=== PATIENT | female | born 1990 | race Caucasian/White ===

== ENCOUNTER 2021-10-04 12:23 | Outpatient (CLI) | payer OTHER, SELFPAY ==
--- NOTE | 2021-10-04 13:00 | CRLHL7_ITS ---
For Patients: As a result of the Century Cures Act, medical imaging exams and procedure reports are released immediately into your electronic medical record. You may view this report before your referring provider. If you have questions, please contact your health care provider. INDICATION: Evaluate anatomy. COMPARISON: 08/18/2021 TECHNIQUE: Real time blunt scale imaging of the fetus was performed as well as color Doppler analysis of the umbilical vessels. FINDINGS: Sonographic imaging demonstrates a single living intrauterine gestation. Fetus demonstrates a regular cardiac rate of 168 beats per minute. Fetus has a vertex position. The placenta lies posterior without evidence of placenta previa. Edge of the placenta 9.1 cm from the internal cervical os. Amniotic fluid volume appears normal. Single deepest vertical pocket: 4.3 cm. The cervix is closed and measures 3.9 cm in length. The composite ultrasound gestational age is calculated at 20 weeks 3 days with an estimated sonographic due date of 02/18/2022. The estimated weight is 348 grams which lies at the 33rd %. The following biometric measurements were obtained: Biparietal diameter: 4.9 cm/20 weeks 6 days 62nd% Head circumference: 17.9 cm/20 weeks 2 days 30th% Abdominal circumference: 15.6 cm/20 weeks 5 days 49th% Femur length: 3.2 cm/19 weeks 6 days 19th% The HC/AC ratio measures: 1.15 range (1.07-1.25) On anatomic survey, there is a normal appearance of the cerebral ventricles, cavum septi pellucidi, cisterna magna and cerebellum. The nose, lips, and facial profile appear normal. The cervical, thoracic and lumbar spine are well visualized and appear normal. There is a normal four-chamber heart view and the left and right ventricular outflow tracts appear normal. The diaphragm and stomach appear normal. The kidneys and bladder also appear normal. There is a normal three-vessel cord and cord insertion site. The four extremities appear normal. IMPRESSION: Normal OB ultrasound exam with concordance of clinical and sonographic dating. No intrinsic abnormalities noted on anatomic survey. Dictated by Brendan Zarate MD @ 10/04/2021 2:41:46 PM (Electronically Signed)
== END 2021-10-04 12:24 | disposition home or self-care (01) ==
LOC: US 12:26
PROVIDERS: Visit Provider Physician Assistant
DX: Z34.92 Encounter for supervision of normal pregnancy, unspecified, second trimester (principal); Z3A.20 20 weeks gestation of pregnancy
CPT/HCPCS: 76805

== ENCOUNTER 2021-11-24 09:56 | Outpatient (CLI) | payer OTHER, SELFPAY ==
[2021-11-25 17:33] LABS: Rapid Plasma Reagin (RPR) Non Reactive (Non Reactive)
== END 2021-11-24 09:57 | disposition home or self-care (01) ==
PROVIDERS: Visit Provider Physician Assistant
DX: Z34.90 Encounter for supervision of normal pregnancy, unspecified, unspecified trimester (principal)
CPT/HCPCS: 86592; 86850

== ENCOUNTER 2022-01-17 10:25 | Outpatient (CLI) | payer OTHER, SELFPAY ==
[2022-01-18 15:31] LABS: Strep B DNA Probe NEGATIVE (Negative)
== END 2022-01-17 10:26 | disposition home or self-care (01) ==
LOC: NFLDREF 10:25
PROVIDERS: Visit Provider Obstetrics & Gynecology
DX: Z34.93 Encounter for supervision of normal pregnancy, unspecified, third trimester (principal); Z3A.35 35 weeks gestation of pregnancy
CPT/HCPCS: 87081; 87653

== ENCOUNTER 2022-01-24 12:49 | Outpatient (CLI) | payer OTHER, SELFPAY ==
--- NOTE | 2022-01-24 15:00 | CRLHL7_ITS ---
For Patients: As a result of the Century Cures Act, medical imaging exams and procedure reports are released immediately into your electronic medical record. You may view this report before your referring provider. If you have questions, please contact your health care provider. INDICATION: COVID in . Assess well-being. TECHNIQUE: Limited transabdominal obstetrical ultrasound for biophysical profile purposes. COMPARISON: October 04, 2021. FINDINGS: Single living intrauterine in vertex presentation. Posterior placenta. heart rate 165 beats per minute. Normal amniotic fluid volume. Single deepest pocket measurement 7.5 cm. Biophysical profile score 8/8 with 2 points given each for breathing, movement, tone, and amniotic fluid. IMPRESSION: Biophysical profile score 8/8. Dictated by Madhu Bhakta MD @ 01/25/2022 8:12:12 PM (Electronically Signed)
== END 2022-01-24 12:50 | disposition home or self-care (01) ==
LOC: US 12:50
PROVIDERS: Visit Provider Obstetrics & Gynecology
DX: Z34.93 Encounter for supervision of normal pregnancy, unspecified, third trimester (principal); Z3A.38 38 weeks gestation of pregnancy
CPT/HCPCS: 76819

== ENCOUNTER 2022-01-31 08:13 | Outpatient (CLI) | payer OTHER, SELFPAY ==
--- NOTE | 2022-01-31 08:15 | CRLHL7_ITS ---
For Patients: As a result of the Century Cures Act, medical imaging exams and procedure reports are released immediately into your electronic medical record. You may view this report before your referring provider. If you have questions, please contact your health care provider. INDICATION: COVID IN COMPARISON: 01/24/2022 TECHNIQUE: Real time blunt scale imaging of the fetus was performed. Without non-stress testing. FINDINGS: Sonographic imaging demonstrates a single living intrauterine gestation. Fetus demonstrates a regular cardiac rate of 135 beats per minute. Fetus has a vertex position. The amniotic fluid volume appears normal and there is a single deepest pocket measurement of 5.6 cm. The fetus was active and demonstrated normal breathing movements. There was normal flexion and extension of the trunk and extremities. IMPRESSION: Normal biophysical profile score of 8 out of 8. Dictated by Brendan Zarate MD @ 01/31/2022 10:27:37 AM (Electronically Signed)
== END 2022-01-31 08:14 | disposition home or self-care (01) ==
PROVIDERS: Visit Provider Obstetrics & Gynecology
DX: O98.519 Other viral diseases complicating pregnancy, unspecified trimester (principal); U07.1 COVID-19
CPT/HCPCS: 76819

== ENCOUNTER 2022-02-06 08:02 | Outpatient (CLI) | payer OTHER, SELFPAY ==
--- NOTE | 2022-02-06 08:15 | CRLHL7_ITS ---
For Patients: As a result of the Century Cures Act, medical imaging exams and procedure reports are released immediately into your electronic medical record. You may view this report before your referring provider. If you have questions, please contact your health care provider. INDICATION: COVID during TECHNIQUE: Real time blunt scale imaging of the fetus was performed. COMPARISON: 01/31/2022 FINDINGS: Sonographic imaging demonstrates a single living intrauterine gestation. Fetus demonstrates a regular cardiac rate of 141 beats per minute. Fetus has a vertex position. The placenta lies posteriorly. Amniotic fluid volume appears normal and there is a single deepest pocket of 6.6 cm. The estimated weight is 2861gm which lies at the 14th %. On the prior OB ultrasound dated 10/04/2021 the estimated weight was at the 33rd percentile. BPD, HC and FL less than 3rd percentile. AC 40th percentile. The fetus was active and demonstrated normal breathing movements. There was normal flexion and extension of the trunk and extremities. IMPRESSION: Normal biophysical profile score 8/8. Sonographic gestational age 35 weeks 2 days and sonographic due date 03/11/2022. Sonographic age is 22 days behind the clinical age. Estimated weight 14th percentile. BPD, HC and FL less than 3rd percentile. Abdominal circumference 40th percentile. Dictated by Brendan Zarate MD @ 02/06/2022 11:09:51 AM (Electronically Signed)
== END 2022-02-06 08:03 | disposition home or self-care (01) ==
LOC: US 08:02
PROVIDERS: Visit Provider Obstetrics & Gynecology
DX: O98.513 Other viral diseases complicating pregnancy, third trimester (principal); U07.1 COVID-19; Z3A.35 35 weeks gestation of pregnancy
CPT/HCPCS: 76816; 76819

== ENCOUNTER 2022-02-13 08:19 | Outpatient (CLI) | payer OTHER, SELFPAY ==
--- NOTE | 2022-02-13 08:15 | CRLHL7_ITS ---
For Patients: As a result of the Century Cures Act, medical imaging exams and procedure reports are released immediately into your electronic medical record. You may view this report before your referring provider. If you have questions, please contact your health care provider. INDICATION: COVID in COMPARISON: 02/06/2022 TECHNIQUE: Real time blunt scale imaging of the fetus was performed. Without non-stress testing. FINDINGS: Sonographic imaging demonstrates a single living intrauterine gestation. Fetus demonstrates a regular cardiac rate of 139 beats per minute. Fetus has a vertex position. The amniotic fluid volume appears normal and there is a single deepest pocket measurement of 4.9 cm. The fetus was active and demonstrated normal breathing movements. There was normal flexion and extension of the trunk and extremities. IMPRESSION: Normal biophysical profile score of 8 out of 8. Dictated by Brendan Zarate MD @ 02/13/2022 11:29:02 AM (Electronically Signed)
== END 2022-02-13 08:20 | disposition home or self-care (01) ==
LOC: US 08:20
PROVIDERS: Visit Provider Obstetrics & Gynecology
DX: O98.513 Other viral diseases complicating pregnancy, third trimester (principal); U07.1 COVID-19; Z3A.39 39 weeks gestation of pregnancy
CPT/HCPCS: 76819

== ENCOUNTER 2022-02-13 16:02 | Inpatient (IN) | payer OTHER, SELFPAY ==
[2022-02-13 16:34] VITALS: PULSE 102; O2SAT 97
[2022-02-13 16:35] VITALS: BP 102/63; PULSE 96
--- NOTE | 2022-02-13 16:37 | W.PM.LDBA ---
Subjective History of Present Illness Date Seen: 02/13/22 Narrative: Patient is being admitted to Labor and Delivery for elective IOL in the setting of COVID infection in . She is a 31 year old at 39 3/7 weeks gestation. Her full history and physical was dictated by on 01/24/22. Please see this for details. Comments: Specific Issues/Plans Blood Type:?O negative 1. History of abnormal Paps: 10/2013: LSIL at age 23 12/11/2014:? Ascus 01/06/2016:? Ascus Colposcopy 2017 with biopsy:? Negative 02/07/2021:? NIL * 2. seasonal allergies (postnasal drainage, sneezing, cough) Claritin and Flonase, Singulair added 09/13/2021:? Reported marked improvement and resolution of cough 3.GERD with return of cough with her heartburn symptoms 11/24/2021:? Initiated omeprazole 20 mg 4. COVID positive, tested positive on 01/24/22, patient had been experiencing symptoms since 01/20/22 -Weekly NST/BPP until delivery -Consider delivery by 39 weeks Rh-negative status RhoGAM:? 11/24/2021 COVID:? Vaccinated +booster Flu vaccine given at her job 12/23/21 OB - H&P: Exam Physical Exam: Vital signs: Pulse BP Pulse Ox 96 102/63 97 02/13/22 16:35 02/13/22 16:35 02/13/22 16:34 Narrative: VITAL SIGNS: As noted above. GENERAL APPEARANCE: Alert, cooperative female in no acute distress. MOOD & AFFECT: Normal. ABDOMEN: Gravid, non tender Cervix: 1.5cm/80%/VX/0 EXTREMITIES: Nonedematous. Well perfused. Nontender. NST: 125bpm/positive accelerations/negative decelerations/moderate variability/ sporadic uterine contractions OB - Problem Based A/P Additional Plan (1) : Status: Acute Plan GBS negative, no need for antibiotic prophylaxis Patient plans to get epidural for pain management May utilize Morphine/Vistaril tonight Cook catheter in place, start IV oxytocin later tonight per protocol Delivery/Labor/Induction Plan Plan: induction Induction method: Intracervical balloon catheter (Placed and patient tolerated procedure well, NST category 1. Will start IV Oxytocin later tonight as per protocol. )
[2022-02-13 16:40] VITALS: BMI 31.2
[2022-02-13 17:24] LABS: SARS Antigen* negative (Negative)
[2022-02-13 18:16] VITALS: BP 108/63; PULSE 72; RESP 16; TEMP 36.9
[2022-02-13 19:53] VITALS: BP 124/83; PULSE 80; PULSE 85; RESP 16; TEMP 36.6; O2SAT 99
[2022-02-13 20:00] VITALS: BP 139/61; PULSE 122; TEMP 36.7
[2022-02-13] MEDS: hydrOXYzine pamoate 25 MG CAPSULE 100 MG PO (23:35)
[2022-02-13 23:54] VITALS: BP 107/58; PULSE 75; TEMP 36.5
[2022-02-14] VITALS (172 sets, daily range): BP systolic 75–219; BP diastolic 41–148; PULSE 53–153; RESP 16–20; TEMP 36.5–37.4; O2SAT 95–100
[2022-02-14] MEDS: ePHEDrine sulfate 5 MG/ML inj 10 MG IVP ×2 (03:22→03:26)
[2022-02-14] MEDS: ROPIVACAINE 0.2% 100 ml 100 ML 10 MG EPIDURAL ×3 (03:28→18:46)
[2022-02-14] MEDS: LIDOCAINE 2% (PF) 5 ML VIAL EPIDURAL (03:29)
--- NOTE | 2022-02-14 03:32 | PM.ANBPRC ---
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 Marital status: [] Current tobacco use: no. Current alcohol use: no. Recreational drug use: no. Smoking Status: Never smoker Meds Home Medications and Allergies Home Medications Medication Instructions Recorded Confirmed Type prenat.vits,portia,wcj-jqqw-sambr 1 tab PO QDAY 09/13/21 02/13/22 History Allergies Allergy/AdvReac Type Severity Reaction Status Date / Time No Known Drug Allergies Allergy Verified 02/13/22 09:08 Results Labs Labs: Laboratory Results - last 24 hr 02/13/22 16:14 SARS-CoV-2 Ag (Rapid) negative Vital Signs Vital Signs: Last Vital Signs Temp 97.7 F 02/13/22 23:54 Pulse 93 02/14/22 03:32 Resp 16 02/13/22 19:53 BP 93/53 L 02/14/22 03:32 Pulse Ox 99 02/14/22 03:32 Weight: 70.125 kg Height: 149.86 cm Anesthesia Procedures Epidural Insertion Patient Location: OB Start Time: 03:00 Stop Time: 03:40 Start Date: 02/14/22 Stop Date: 02/14/22 Reason for Block: primary anesthetic Patient Position: sitting Performed By: Macario Paul Preanesthetic Checklist: IV checked, risks and benefits discussed, surgical consent, monitors and equipment checked, pre-op evaluation, timeout performed and anesthesia consent Prep: chlorhexidine gluconate Monitoring: blood pressure monitoring, residential monitor, continuous pulse oximetry and heart rate Approach: midline Vertebral Space: lumbar (1-5) Needle Type: Tuohy needle Injection Technique: continuous catheter (catheter) Needle gauge: 17 Needle Length (cm): 10 cm Needle Insertion Depth (cm): 5 Catheter Gauge: 19 Catheter Type: multi-orifice Catheter at skin depth (cm): 10 Test Dose Result: negative and lidocaine 1.5% with epinephrine 1 to 200,000
[2022-02-14] MEDS: PHENYLEPHRINE 100 MCG/ML SYRINGE IVP ×4 (03:40→06:04)
[2022-02-14] MEDS: OXYTOCIN 30 unit/500 ML in NS 30 UNIT/500 ML BAG IVPB (05:30)
[2022-02-14] MEDS: SODIUM CHLORIDE 0.9 % (FLUSH) 10 ML SYRINGE IVF (05:44)
--- NOTE | 2022-02-14 06:23 | PM.OBPNL ---
Subjective Date Seen: 02/14/22 Narrative: Patient was evaluated at around 2-3am due to NST showing what looked like frequent variable decelerations. We tried position changes, decided to check cervix and cook catheter was found at +2 station, this was deflated and removed. Cervix was found 4cm, patient requested epidural before AROM. Due to multiple events overnight with the care of other patients IV oxytocin was not started until after 4am this morning. Currently NST with baseline of 120bpm/moderate variability/positive accelerations/no decelerations/regular contractions. Plan to continue titration of IV Oxytocin and to AROM later this am. Care to be assumed by Dr. Guerrero this morning. Objective Vital Signs: Last Vital Signs Temp 97.7 F 02/13/22 23:54 Pulse 94 02/14/22 06:20 Resp 16 02/13/22 19:53 BP 100/59 L 02/14/22 06:20 Pulse Ox 98 02/14/22 03:52
[2022-02-14] MEDS: LACTATED RINGERS 1000 ML 1,000 ML 125 ML IV ×2 (07:28→11:40)
--- NOTE | 2022-02-14 09:06 | PM.OBPNL ---
Subjective Time Seen by Provider: 09:00 Date Seen: 02/14/22 Narrative: Debra is comfortable with epidural. She feels some contractions. Objective Exam: Gen - NAD Abd - soft, NT, gravid, EFW 7.5 lbs by Ki SVE: 5 / 100 / 0 station. AROM for light meconium-stained fluid Vital Signs: Last Vital Signs Temp 97.7 F 02/14/22 07:15 Pulse 94 02/14/22 08:57 Resp 16 02/13/22 19:53 BP 137/65 02/14/22 08:57 Pulse Ox 100 02/14/22 09:00 Comments: tracing: Baseline 130 / accels present / no decels / moderate variability. Contractions Monitor mode: External Contraction Frequency: not registering well Pitocin Rate (mU/min): 9 Assessment Assessment: early labor Amniotic Membrane Status: AROM Status: Category l Tracing Comments: Light meconium stained fluid. GBS negative. Labor Progress: About to enter active labor, progressing well. Plan Plan: Continue pitocin augmentation. Reassess 2 hrs. Peds to be present at delivery.
--- NOTE | 2022-02-14 17:03 | PM.OBPNL ---
Subjective Time Seen by Provider: 16:30 Date Seen: 02/14/22 Narrative: Debra is starting to have continuous back pain and pelvic pressure. Her last nurse reported her to be 7 cm, but her current nurse, Jyoti, found her to be 6 cm. She has asked for IUPC. Objective Exam: Gen - NAD Abd - soft, NT, gravid, EFW 7.5 lbs by Bryan's on my previous exam SVE: 8 / 100 / 0 - +1 station. IUPC placed with aseptic technique Vital Signs: Last Vital Signs Temp 98.4 F 02/14/22 14:30 Pulse 92 02/14/22 16:57 Resp 16 02/13/22 19:53 BP 116/58 L 02/14/22 16:57 Pulse Ox 100 02/14/22 14:02 Comments: tracing: Baseline 130 / accels present / no decels / moderate variability. Contractions Monitor mode: External Contraction Frequency: 1-3 min Contraction pattern: Regular Pitocin Rate (mU/min): 16 Assessment Assessment: active labor Amniotic Membrane Status: AROM Status: Category l Tracing Comments: Light meconium stained fluid. GBS negative. Labor Progress: Protracted active phase, but progressing well. Plan Plan: Continue pitocin augmentation. Assess MVUs. Anticipate will be completely dilated shortly. Peds to be present at delivery.
--- NOTE | 2022-02-14 20:53 | PM.OBPNL ---
Subjective Time Seen by Provider: 18:20 Date Seen: 02/14/22 Narrative: Debra is a 31 yo at 39 4/7 that was electively induced for hx of COVID. She recently began feeling pressure. I assumed care to cover while Dr. Guerrero is in the operating room. Patient has just initiated pushing and is pushing well. She is comfortable with an epidural. She is currently supported in labor by her Partner. Objective Exam: Constitutional: Alert and oriented x3, mild distress, coping well? Vital signs stable, see nursing documentation?? Abdomen: gravid, contractions palpate strong with contractions and soft between? SVE:?10 / 100 / +2 station per RN. Vital Signs: Last Vital Signs Temp 99.3 F 02/14/22 17:40 Pulse 133 H 02/14/22 20:47 Resp 16 02/14/22 17:40 BP 140/67 H 02/14/22 20:47 Pulse Ox 98 02/14/22 20:51 Pelvic Exam Dilation (cm): 10 Effacement (%): 100 Station: +2 Contractions Monitor mode: Internal Contraction Frequency: 1-5 Contraction pattern: Regular Contraction intensity: Strong/Firm Pitocin Rate (mU/min): 16 Assessment Assessment: induction ongoing and other (2nd Stage of labor) Station: +2 Amniotic Membrane Status: AROM Status: Category l Heart Rate Baseline: 140 Longterm Variability: Moderate (6-25) Monitor Accelerations: Present Monitor Decelerations: None Labor Progress: Protracted active phase of labor Maternal Status: Observed first maternal pushing effort. Pushing well. Plan Plan: 1. Routine intrapartum cares as ordered. 2. Monitoring per policy, continuous? 3. Patient encouraged to reposition while pushing. 4. Initiated pushing with RN, pushing well. 5. Anticipate ?
[2022-02-14] MEDS: ACETAMINOPHEN 500 MG TABLET 1000 MG PO (21:05)
--- NOTE | 2022-02-14 22:59 | PM.OBPRCVD ---
Procedure Procedure Done: [facility] Procedure Details: The patient is a 31 year-old G 2 P 0-0-1-0 woman admitted on 02/13/2022 at 39 Weeks, 2 Days gestation for elective induction of labor.? Cervical exam on admission was 1 cm/80 % effaced/0 station with membranes intact in vertex presentation.? She was having sporadic contractions. heart rate demonstrated baseline 125 bpm with moderate variability, positive accelerations, no decelerations; a category 1 tracing.? She had Cook catheter placed for cervical ripening. She had AROM at a 8:51 a.m. on February 14 with light meconium-stained fluid. ? Labor Analgesia:? Epidural ? Pitocin:? Yes ? Labor onset:? 11:00 a.m. ? Complete:? 6:15 p.m. ? Pushing:? 6:16 p.m. ? heart tones during second stage were reassuring, aside from deep variable decelerations after contractions just prior to delivery of the infant. ? At 7:26 p.m. a viable male delivered in vertex OA presentation over intact perineum via spontaneous vaginal delivery.? was placed on maternal abdomen, was not vigorous. Cord was thus immediately clamped and cut and was passed off to attending pediatric provider.? Nose and mouth were bulb suctioned.? Infant weight pending.? 7 at 1 minute and 8 at 5 minutes.? Weight was 3010 g. Shoulder dystocia: No.? Nuchal cord: No, loose cord around shoulders, delivered through this. ? Placenta delivered spontaneously and complete at 7:37 p.m. with a 3 vessel cord. ? Mother and infant were stable after delivery. ? Lacerations:? Right periurethral and second-degree vaginal that did not disrupt the perineal skin, repaired with 3-0 Vicryl after infiltration with 10 mL of 1% lidocaine. ? Blood loss: 350 mL. Blood loss measurement type: EBL ? Sponge and needles counts are correct. Estimated blood loss (mL): 350 [place] Infant Infant Gender: Male total score - 1 minute: 7 total score - 5 minute: 8
[2022-02-15] VITALS (7 sets, daily range): BP systolic 91–120; BP diastolic 52–82; PULSE 77–103; RESP 16–18; TEMP 36.3–36.7; O2SAT 96–97
[2022-02-15] MEDS: IBUPROFEN 600 MG TABLET PO ×4 (00:02→20:23)
[2022-02-15] MEDS: ACETAMINOPHEN 500 MG TABLET 1000 MG PO ×4 (03:15→23:28)
[2022-02-15 05:45] LABS: Hemoglobin* 8.9 gm/dL (12.0-16.0)
--- NOTE | 2022-02-15 08:14 | P.OBPN_ITS ---
OB - PN:Subj Subjective Time Seen by Provider: 08:14 Date Seen: 02/15/22 Interval history: Debra is a 31 y.o. who was admitted to L & D for IOL. She had an uncomplicated NVD. Patient comments OB post-: no complaints, pain well controlled, perineal pain, tolerating diet and flatus present [place] infant status: bottle, and doing well [place] feeding status: breast and bottle feeding Narrative: The patient feels well. The pain is well controlled with current medications. She has no new complaints. She is breast feeding and reports things are going well. Is also supplementing as needed.? the patient has done well.? Vitals have been stable.? She has remained afebrile.? Has a good appetite, is tolerating a general diet. She is voiding without difficulty.? She is passing gas and has not had a bowel movement.? She is ambulating and denies any dizziness.? Has Small amount of rubra lochia. OB - PN: Obj Exam Physical Exam: Vital signs: Temp Pulse Resp BP Pulse Ox O2 Del Method 98.0 F 92 16 107/52 L 97 02/15/22 04:00 02/15/22 04:00 02/15/22 04:00 02/15/22 04:00 02/15/22 04:00 02/15/22 04:00 Narrative: GENERAL APPEARANCE: normal affect, alert, no distress MOOD: appropriate HEENT: normocephalic, neck supple, full ROM. Dark lines under eyes bilaterally from broken blood vessels w/ pushing CHEST: Symmetrical chest wall movement. Normal respiratory effort. Clear to auscultation HEART: regular rate and rhythm ABDOMEN: soft, non-tender. Uterine fundus is firm, 1 fingerbreath below Umbilicus, Midline and is appropriate for the stage of recovery. Bowel sounds present. PERINEUM: Large amount of edema of the perineum and labia bilaterally, and bruising noted on the pernieum. Soft to the touch, no hematoma. There is a 2nd degree laceration that is healing well. EXTREMITIES: normal and no edema OB - PN: Obj Data Labs Labs: Laboratory Results - last 24 hr 02/15/22 05:35 Hgb 8.9 L OB - PN: A/P Vaginal Delivery Assessment and Plan (1) : Status: Resolved (2) Normal spontaneous vaginal delivery: Status: Acute (3) Second degree laceration of perineum, delivered, current hospitalization: Status: Acute Plan day: 1 Plan: routine care Comments: G 2 P 1 status post uncomplicated NVD 1. Continue route PP cares 2. . May see if desired 3. Acute anemia. Iron supplement ordered 4. Anticipate discharge home tomorrow 5. Perineal swelling. -Comfort measures reviewed including ice, soaking in the tub, etc.
[2022-02-15] MEDS: DOCUSATE SODIUM 100 MG CAPSULE PO (09:14)
[2022-02-15] MEDS: FERROUS SULFATE 325 MG TABLET PO (09:14)
[2022-02-16] MEDS: IBUPROFEN 600 MG TABLET PO ×2 (02:35→08:53)
[2022-02-16 03:00] VITALS: BP 105/65; PULSE 86; RESP 18; TEMP 36.6; O2SAT 97
[2022-02-16] MEDS: ACETAMINOPHEN 500 MG TABLET 1000 MG PO (05:43)
[2022-02-16 08:50] VITALS: BP 116/71; PULSE 100; RESP 16; TEMP 36.3; O2SAT 97
--- NOTE | 2022-02-16 08:50 | PM.OBDSVD1 ---
DS: Providers Provider Date Seen: 02/16/22 Date of admission: 02/13/22 16:02 Primary care physician: Not a Local Provider Admitting Clinician: Maryellen Burgos MD Attending Physician on discharge: Maryellen Burgos MD Date of Discharge: 02/16/22 DS: Diagnosis Discharge Diagnosis (1) Normal spontaneous vaginal delivery: Status: Acute (2) Lactating mother: Status: Acute Exam Const: Vital Signs, click to edit/add: Vital Signs - 24 hr 02/15/22 11:54 02/15/22 16:16 02/15/22 20:00 Temperature 97.9 F 97.8 F 97.5 F L Pulse Rate [Pulse Oximeter] 77 98 98 Respiratory Rate 16 16 16 Blood Pressure [Ri ght Arm] 115/73 105/73 109/74 Pulse Oximetry 96 96 Oxygen Delivery Me thod Room Air Room Air Room Air Nasal Can nula High Flow [place] Cannula 02/15/22 23:00 02/16/22 03:00 Temperature 97.8 F 97.9 F Pulse Rate [Pulse Oximeter] 79 86 Respiratory Rate 18 18 Blood Pressure [Ri ght Arm] 91/57 L 105/65 Pulse Oximetry 97 Oxygen Delivery Me thod Room Air Nasal [place] n[place] Room Air Documenting provider has reviewed patient's vital signs: yes Common normals: no apparent distress HENMT: Common normals: normocephalic Head and scalp: normocephalic Face and sinus: normal facial exam Eye: General eye: normal appearance of both eyes Neck & C-Spine: Common normals: full ROM and no JVD Resp: Common normals: normal respiratory effort, no retractions, no use of accessory muscles and clear to auscultation bilaterally Auscultation: clear to auscultation bilaterally Cardio: Common normals: no JVD, regular rate, regular rhythm, S1 normal heart sound, S2 normal heart sound, no gallops, no clicks, no murmurs and no rub Rate: regular rate Rhythm: regular rhythm Heart sounds: S1 normal and S2 normal GI: Common normals: soft to palpation and non-tender Palpation: soft : Common normals: external appearance normal Uterus: U/1 Extremity: Common normals: full ROM Psych: Common normals: mental status grossly normal OB - DS: Summary Hospital Course Hospital Course: The patient is a 31 year old G [] P [] at [] weeks gestation that was admitted to the Center on 02/13/22 for []. She had an [uncomplicated/complicated] [vaginal/] delivery. She delivered a viable [male/female] . She is [breast/bottle] feeding. the patient has done well. Peripartum Data Infant delivery method: Vaginal Laceration description: Perineal - 2nd Degree (and periurethral) Episiotomy description: None Procedures: Patient is a 31 year old, G2 now P 1? admitted on 02/14 at 39 Weeks, 0 Days gestation for elective IOL.? She had an uncomplicated vaginal delivery.? She delivered a viable male infant.? She is breast feeding and reports things are well.? the patient has done well.? Her pain is well controlled with current medications.? She has no new complaints.? Vitals have been stable. She has remained afebrile. She is voiding without difficulty. She is passing gas and has not had a bowel movement. She is ambulating and denies any dizziness. She is unsure what she is planning for control. She felt the IUD previously had affected her mood and felt better after she no longer had an IUD. She will probably use condoms to start. complications: none [place] Gender: Male Infant Discharge Plan: Home Status at Discharge Functional status at discharge: independent ambulation Overall status at discharge: patient is progressing back to baseline Time Spent with Patient Time attestation: Total time spent providing and/or coordinating discharge services: Discharge Plan Discharge Disposition: Home, Self-Care Date of Admission: 02/13/22 16:02 Attending Provider on Discharge: Cheryl Riggins Primary Care Provider: Provider,Not a Local Condition: Stable Anticipated Discharge Date/Time: 02/16/22 10:00 Discharge Medications: New docusate sodium 100 mg Capsule 100 mg PO DAILY Qty: 90 0RF Rx Instructions: Take 1-2 tablets daily as needed for constipation. ferrous sulfate 325 mg (65 mg iron) Tablet 325 mg PO DAILYWM Qty: 90 0RF ibuprofen 600 mg Tablet 600 mg PO Q6H PRNQty: 60 0RF Continued prenat.vits,portia,[id number] Tablet 1 tab PO QDAY Discontinued omeprazole 20 mg capsule,delayed release(/EC) 20 mg PO QDAY Qty: 90 0RF Discharge Orders: Discharge Order (Routine); Ordered 02/16/22 Ordered By: Cheryl Riggins Patient Education: OB Vaginal/Breast Feeding Additional Instructions: Discharge instructions were reviewed with the patient including signs and symptoms of infection and home going medications.? Lifting Restrictions: 10 pounds for 6? weeks? ?? Do not drive while taking pain meds.? Off Work or School for 6 weeks.? ?? Symptoms to report to doctor:? -Bleeding that saturates more than one pad per hour? -Passing clots larger than the size of a golf ball? -Pain not relieved by prescribed medication? -Fever above 100.4 degrees Fahrenheit? -A foul vaginal odor? -Difficulty in emotions, mood and functions? -Thoughts of hurting yourself and/or ? -Painful, reddened area in your breast? -Any drainage, redness or tenderness in your IV/epidural site? -Severe headache that doesn't improve after taking medications? -Changes in vision, including temporary loss of vision, blurred vision, and/or light sensitivity? -Upper abdominal pain (usually under ribs on the right side)? -Decrease in urination or painful, frequent urinating? -Chest pain? -Shortness of breath? -Tenderness or pain with redness and/swelling in the calf(s) of your leg? ?? Follow Up in clinic in 2 and 6 weeks.? ?? consultation services are available to all mothers and babies for the first year after delivery.? To make an appointment, please call [phone].? Activity Level: No Restrictions Discharge Diet: Regular Follow Up Appointments: Provider,Not a Local [Primary Care Provider] - Forms: [employer] Info Instructions
[2022-02-16] MEDS: DOCUSATE SODIUM 100 MG CAPSULE PO (08:54)
[2022-02-16 09:44] VITALS: BP 116/71; RESP 16; TEMP 37.1; O2SAT 99
== END 2022-02-16 12:14 | disposition home or self-care (01) | DRG 805 ==
PROVIDERS: Obstetrics & Gynecology; Admitting Provider Obstetrics & Gynecology; Visit Provider Obstetrics & Gynecology
DX: O98.52 Other viral diseases complicating childbirth (principal); U07.1 COVID-19; Z37.0 Single live birth; D62 Acute posthemorrhagic anemia; O90.81 Anemia of the puerperium; O77.0 Labor and delivery complicated by meconium in amniotic fluid; O70.1 Second degree perineal laceration during delivery; O71.82 Other specified trauma to perineum and vulva; K21.9 Gastro-esophageal reflux disease without esophagitis; Z3A.39 39 weeks gestation of pregnancy
CPT/HCPCS: 01967; 36415; 85018; 85461; 87426; 87635; A9270; J2370; J2791; J2795; J7120

== ENCOUNTER 2022-03-05 03:30 | Emergency (ER) | payer OTHER, SELFPAY ==
[2022-03-05] VITALS (23 sets, daily range): BP systolic 94–109; BP diastolic 51–77; PULSE 51–78; RESP 14–18; TEMP 36.9–37.4; O2SAT 96–100; BMI 26.3
--- NOTE | 2022-03-05 04:25 | ED.GENADULT ---
HPI - General Adult General Chief complaint: Post OB/Post- Complication <Brendan Curry MD - Last Filed: 03/05/22 06:57> Stated complaint: Post Bleeding <Brendan Curry MD - Last Filed: 03/05/22 06:57> Time Seen by Provider: 03/05/22 03:51 <Brendan Curry MD - Last Filed: 03/05/22 06:57> History of Present Illness HPI narrative: 31-year-old woman brought by EMS to the emergency department accompanied by her with concern of syncopal event and vaginal bleeding. following normal spontaneous vaginal delivery almost 3 weeks ago. 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 Further bleeding noted in the toilet. had returned to attend to their infant when he heard her fall. Apparently struck right side of her head on the floor the bathroom. She is not having any neck or back pain. She is not having any nausea. No shortness of breath. Had actually been feeling quite good today with more energy up and doing a lot of cleaning. Is not having any abdominal pain. She is unsure if she is still bleeding. No fever. Reviewing records shows initial January hemoglobin 11.4 last measured at 8.9. Is antibody negative. complicated by COVID and delivery with second-degree vaginal laceration. EMS noting systolics initially of 89. <Brendan Curry MD - Last Filed: 03/05/22 06:57> Related Data Home medications: Home Medications Medication Instructions Recorded Confirmed fluoxetine 10 mg capsule (Prozac) 10 mg PO QDAY 03/02/22 03/02/22 ferrous sulfate 325 mg (65 mg mg 03/05/22 iron) tablet (FeroSul) Previous Rx's Medication Instructions Recorded ibuprofen 600 mg tablet 600 mg PO Q6H PRN #60 tabs 02/16/22 fluoxetine 20 mg capsule 20 mg PO QDAY #30 caps 03/02/22 <Brendan Curry MD - Last Filed: 03/05/22 06:57> Allergies/adverse reactions: Allergies Allergy/AdvReac Type Severity Reaction Status Date / Time No Known Drug Allergies Allergy Verified 03/05/22 03:41 <Brendan Curry MD - Last Filed: 03/05/22 06:57> Review of Systems Status of ROS: Reports: 6 or more systems reviewed and unremarkable except as noted in History and below <Brendan Curry MD - Last Filed: 03/05/22 06:57> [facility] Medical History: Medical History COVID-19 affecting in third trimester GERD (gastroesophageal reflux disease) History of abnormal cervical Papanicolaou smear <Brendan Curry MD - Last Filed: 03/05/22 06:57> Surgical History: Surgical History Hx of cholecystectomy <Brendan Curry MD - Last Filed: 03/05/22 06:57> Social History: Social History Narrative: 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 Marital status: [] Current tobacco use: no. Current alcohol use: no. Recreational drug use: no. Smoking Status: Never smoker Do you use any of these nicotine containing products: None Second hand tobacco smoke exposure: No How often do you have a drink containing alcohol: never AUDIT-C Alcohol total score: 0 Non-prescribed substance use: denies use <Brendan Curry MD - Last Filed: 03/05/22 06:57> Exam Narrative: Exam Narrative: Is pleasant. Fully alert. Good energy. Skin is warm and dry. There is mild line of erythema at the right forehead and hairline consistent with fall. Not tender here no crepitus or step-offs appreciated. Cranial nerves 2-12 intact. Both eyes lateral to the cornea have small subconjunctival hemorrhages. This apparently was and not new today. Breathing easily. Lungs are clear. Cardiovascular with a regular rate and rhythm no murmur rub or gallop identified. Neck is supple and nontender. Back nontender as well. Abdomen soft and nontender. Uterus feels firm. Extremities without edema. Clothing obscuring evidence of bleeding at this initial evaluation. <Brendan Curry MD - Last Filed: 03/05/22 06:57> Const: Vital Signs, click to edit/add: Vital Signs - 24 hr 03/05/22 03:32 03/05/22 03:48 03/05/22 04:21 Temperature 99.4 F Pulse Rate 68 Pulse Rate [Left P ulse Oximeter] 61 Pulse Rate [orthos tatic lying Left P ulse Oximeter] 59 L Pulse Rate [orthos tatic sitting Left Pulse Oximeter] Pulse Rate [orthos tatic standing Lef t Pulse Oximeter] Respiratory Rate 14 Blood Pressure Blood Pressure [Le ft Upper Arm] Blood Pressure [Ri ght Upper Arm] 103/77 Blood Pressure [or thostatic lying Ri ght Arm] 100/68 Blood Pressure [or thostatic sitting Right Arm] Blood Pressure [or thostatic standing Right Arm] Pulse Oximetry 98 99 Oxygen Delivery Me thod Room Air 03/05/22 04:23 03/05/22 04:25 03/05/22 04:15 Temperature Pulse Rate Pulse Rate [Left P ulse Oximeter] Pulse Rate [orthos tatic lying Left P ulse Oximeter] Pulse Rate [orthos tatic sitting Left Pulse Oximeter] 67 Pulse Rate [orthos tatic standing Lef t Pulse Oximeter] 75 Respiratory Rate Blood Pressure Blood Pressure [Le ft Upper Arm] Blood Pressure [Ri ght Upper Arm] Blood Pressure [or thostatic lying Ri ght Arm] Blood Pressure [or thostatic sitting Right Arm] 107/74 Blood Pressure [or thostatic standing Right Arm] 94/51 L Pulse Oximetry 98 Oxygen Delivery Me thod 03/05/22 04:00 03/05/22 04:08 03/05/22 04:16 Temperature Pulse Rate 58 L 61 61 Pulse Rate [Left P ulse Oximeter] Pulse Rate [orthos tatic lying Left P ulse Oximeter] Pulse Rate [orthos tatic sitting Left Pulse Oximeter] Pulse Rate [orthos tatic standing Lef t Pulse Oximeter] Respiratory Rate Blood Pressure 106/75 106/70 Blood Pressure [Le ft Upper Arm] Blood Pressure [Ri ght Upper Arm] Blood Pressure [or thostatic lying Ri ght Arm] Blood Pressure [or thostatic sitting Right Arm] Blood Pressure [or thostatic standing Right Arm] Pulse Oximetry 98 97 97 Oxygen Delivery Me thod 03/05/22 04:21 03/05/22 04:23 03/05/22 04:25 Temperature Pulse Rate 78 66 55 L Pulse Rate [Left P ulse Oximeter] Pulse Rate [orthos tatic lying Left P ulse Oximeter] Pulse Rate [orthos tatic sitting Left Pulse Oximeter] Pulse Rate [orthos tatic standing Lef t Pulse Oximeter] Respiratory Rate Blood Pressure 100/68 107/74 94/51 L Blood Pressure [Le ft Upper Arm] Blood Pressure [Ri ght Upper Arm] Blood Pressure [or thostatic lying Ri ght Arm] Blood Pressure [or thostatic sitting Right Arm] Blood Pressure [or thostatic standing Right Arm] Pulse Oximetry 96 99 100 Oxygen Delivery Me thod 03/05/22 04:30 03/05/22 04:45 03/05/22 04:47 Temperature Pulse Rate 51 L 67 62 Pulse Rate [Left P ulse Oximeter] Pulse Rate [orthos tatic lying Left P ulse Oximeter] Pulse Rate [orthos tatic sitting Left Pulse Oximeter] Pulse Rate [orthos tatic standing Lef t Pulse Oximeter] Respiratory Rate Blood Pressure 97/64 Blood Pressure [Le ft Upper Arm] Blood Pressure [Ri ght Upper Arm] Blood Pressure [or thostatic lying Ri ght Arm] Blood Pressure [or thostatic sitting Right Arm] Blood Pressure [or thostatic standing Right Arm] Pulse Oximetry 98 99 99 Oxygen Delivery Me thod 03/05/22 05:00 03/05/22 05:01 03/05/22 05:15 Temperature Pulse Rate 62 67 57 L Pulse Rate [Left P ulse Oximeter] Pulse Rate [orthos tatic lying Left P ulse Oximeter] Pulse Rate [orthos tatic sitting Left Pulse Oximeter] Pulse Rate [orthos tatic standing Lef t Pulse Oximeter] Respiratory Rate Blood Pressure 109/76 Blood Pressure [Le ft Upper Arm] Blood Pressure [Ri ght Upper Arm] Blood Pressure [or thostatic lying Ri ght Arm] Blood Pressure [or thostatic sitting Right Arm] Blood Pressure [or thostatic standing Right Arm] Pulse Oximetry 99 99 99 Oxygen Delivery Me thod 03/05/22 05:16 03/05/22 05:30 03/05/22 05:31 Temperature Pulse Rate 57 L 57 L 58 L Pulse Rate [Left P ulse Oximeter] Pulse Rate [orthos tatic lying Left P ulse Oximeter] Pulse Rate [orthos tatic sitting Left Pulse Oximeter] Pulse Rate [orthos tatic standing Lef t Pulse Oximeter] Respiratory Rate Blood Pressure 105/71 96/67 Blood Pressure [Le ft Upper Arm] Blood Pressure [Ri ght Upper Arm] Blood Pressure [or thostatic lying Ri ght Arm] Blood Pressure [or thostatic sitting Right Arm] Blood Pressure [or thostatic standing Right Arm] Pulse Oximetry 98 98 98 Oxygen Delivery Me thod 03/05/22 05:45 03/05/22 05:46 03/05/22 06:00 Temperature Pulse Rate 60 62 71 Pulse Rate [Left P ulse Oximeter] Pulse Rate [orthos tatic lying Left P ulse Oximeter] Pulse Rate [orthos tatic sitting Left Pulse Oximeter] Pulse Rate [orthos tatic standing Lef t Pulse Oximeter] Respiratory Rate Blood Pressure 103/77 Blood Pressure [Le ft Upper Arm] Blood Pressure [Ri ght Upper Arm] Blood Pressure [or thostatic lying Ri ght Arm] Blood Pressure [or thostatic sitting Right Arm] Blood Pressure [or thostatic standing Right Arm] Pulse Oximetry 97 97 97 Oxygen Delivery Me thod 03/05/22 06:01 03/05/22 07:16 Temperature 98.5 F Pulse Rate 62 Pulse Rate [Left P ulse Oximeter] 68 Pulse Rate [orthos tatic lying Left P ulse Oximeter] Pulse Rate [orthos tatic sitting Left Pulse Oximeter] Pulse Rate [orthos tatic standing Lef t Pulse Oximeter] Respiratory Rate 18 Blood Pressure 106/69 Blood Pressure [Le ft Upper Arm] 102/70 Blood Pressure [Ri ght Upper Arm] Blood Pressure [or thostatic lying Ri ght Arm] Blood Pressure [or thostatic sitting Right Arm] Blood Pressure [or thostatic standing Right Arm] Pulse Oximetry 97 98 Oxygen Delivery Me thod Room Air <Brendan Curry MD - Last Filed: 03/05/22 06:57> Vital Signs, click to edit/add: Vital Signs - 24 hr 03/05/22 03:32 03/05/22 03:48 03/05/22 04:21 Temperature 99.4 F Pulse Rate 68 Pulse Rate [Left P ulse Oximeter] 61 Pulse Rate [orthos tatic lying Left P ulse Oximeter] 59 L Pulse Rate [orthos tatic sitting Left Pulse Oximeter] Pulse Rate [orthos tatic standing Lef t Pulse Oximeter] Respiratory Rate 14 Blood Pressure Blood Pressure [Le ft Upper Arm] Blood Pressure [Ri ght Upper Arm] 103/77 Blood Pressure [or thostatic lying Ri ght Arm] 100/68 Blood Pressure [or thostatic sitting Right Arm] Blood Pressure [or thostatic standing Right Arm] Pulse Oximetry 98 99 Oxygen Delivery Me thod Room Air 03/05/22 04:23 03/05/22 04:25 03/05/22 04:15 Temperature Pulse Rate Pulse Rate [Left P ulse Oximeter] Pulse Rate [orthos tatic lying Left P ulse Oximeter] Pulse Rate [orthos tatic sitting Left Pulse Oximeter] 67 Pulse Rate [orthos tatic standing Lef t Pulse Oximeter] 75 Respiratory Rate Blood Pressure Blood Pressure [Le ft Upper Arm] Blood Pressure [Ri ght Upper Arm] Blood Pressure [or thostatic lying Ri ght Arm] Blood Pressure [or thostatic sitting Right Arm] 107/74 Blood Pressure [or thostatic standing Right Arm] 94/51 L Pulse Oximetry 98 Oxygen Delivery Me thod 03/05/22 04:00 03/05/22 04:08 03/05/22 04:16 Temperature Pulse Rate 58 L 61 61 Pulse Rate [Left P ulse Oximeter] Pulse Rate [orthos tatic lying Left P ulse Oximeter] Pulse Rate [orthos tatic sitting Left Pulse Oximeter] Pulse Rate [orthos tatic standing Lef t Pulse Oximeter] Respiratory Rate Blood Pressure 106/75 106/70 Blood Pressure [Le ft Upper Arm] Blood Pressure [Ri ght Upper Arm] Blood Pressure [or thostatic lying Ri ght Arm] Blood Pressure [or thostatic sitting Right Arm] Blood Pressure [or thostatic standing Right Arm] Pulse Oximetry 98 97 97 Oxygen Delivery Me thod 03/05/22 04:21 03/05/22 04:23 03/05/22 04:25 Temperature Pulse Rate 78 66 55 L Pulse Rate [Left P ulse Oximeter] Pulse Rate [orthos tatic lying Left P ulse Oximeter] Pulse Rate [orthos tatic sitting Left Pulse Oximeter] Pulse Rate [orthos tatic standing Lef t Pulse Oximeter] Respiratory Rate Blood Pressure 100/68 107/74 94/51 L Blood Pressure [Le ft Upper Arm] Blood Pressure [Ri ght Upper Arm] Blood Pressure [or thostatic lying Ri ght Arm] Blood Pressure [or thostatic sitting Right Arm] Blood Pressure [or thostatic standing Right Arm] Pulse Oximetry 96 99 100 Oxygen Delivery Me thod 03/05/22 04:30 03/05/22 04:45 03/05/22 04:47 Temperature Pulse Rate 51 L 67 62 Pulse Rate [Left P ulse Oximeter] Pulse Rate [orthos tatic lying Left P ulse Oximeter] Pulse Rate [orthos tatic sitting Left Pulse Oximeter] Pulse Rate [orthos tatic standing Lef t Pulse Oximeter] Respiratory Rate Blood Pressure 97/64 Blood Pressure [Le ft Upper Arm] Blood Pressure [Ri ght Upper Arm] Blood Pressure [or thostatic lying Ri ght Arm] Blood Pressure [or thostatic sitting Right Arm] Blood Pressure [or thostatic standing Right Arm] Pulse Oximetry 98 99 99 Oxygen Delivery Mi thod 03/05/22 05:00 03/05/22 05:01 03/05/22 05:15 Temperature Pulse Rate 62 67 57 L Pulse Rate [Left P ulse Oximeter] Pulse Rate [orthos tatic lying Left P ulse Oximeter] Pulse Rate [orthos tatic sitting Left Pulse Oximeter] Pulse Rate [orthos tatic standing Lef t Pulse Oximeter] Respiratory Rate Blood Pressure 109/76 Blood Pressure [Le ft Upper Arm] Blood Pressure [Ri ght Upper Arm] Blood Pressure [or thostatic lying Ri ght Arm] Blood Pressure [or thostatic sitting Right Arm] Blood Pressure [or thostatic standing Right Arm] Pulse Oximetry 99 99 [facility] 05:16 03/05/22 05:30 03/05/22 05:31 Temperature Pulse Rate 57 L 57 L 58 L Pulse Rate [Left P ulse Oximeter] Pulse Rate [orthos tatic lying Left P ulse Oximeter] Pulse Rate [orthos tatic sitting Left Pulse Oximeter] Pulse Rate [orthos tatic standing Lef t Pulse Oximeter] Respiratory Rate Blood Pressure 105/71 96/67 Blood Pressure [Le ft Upper Arm] Blood Pressure [Ri ght Upper Arm] Blood Pressure [or thostatic lying Ri ght Arm] Blood Pressure [or thostatic sitting Right Arm] Blood Pressure [or thostatic standing Right Arm] Pulse Oximetry 98 98 98 Oxygen Delivery Mi thod 03/05/22 05:45 03/05/22 05:46 03/05/22 06:00 Temperature Pulse Rate 60 62 71 Pulse Rate [Left P ulse Oximeter] Pulse Rate [orthos tatic lying Left P ulse Oximeter] Pulse Rate [orthos tatic sitting Left Pulse Oximeter] Pulse Rate [orthos tatic standing Lef t Pulse Oximeter] Respiratory Rate Blood Pressure 103/77 Blood Pressure [Le ft Upper Arm] Blood Pressure [Ri ght Upper Arm] Blood Pressure [or thostatic lying Ri ght Arm] Blood Pressure [or thostatic sitting Right Arm] Blood Pressure [or thostatic standing Right Arm] Pulse Oximetry 97 97 97 Oxygen Delivery Me thod 03/05/22 06:01 03/05/22 07:16 Temperature 98.5 F Pulse Rate 62 Pulse Rate [Left P ulse Oximeter] 68 Pulse Rate [orthos tatic lying Left P ulse Oximeter] Pulse Rate [orthos tatic sitting Left Pulse Oximeter] Pulse Rate [orthos tatic standing Lef t Pulse Oximeter] Respiratory Rate 18 Blood Pressure 106/69 Blood Pressure [Le ft Upper Arm] 102/70 Blood Pressure [Ri ght Upper Arm] Blood Pressure [or thostatic lying Ri ght Arm] Blood Pressure [or thostatic sitting Right Arm] Blood Pressure [or thostatic standing Right Arm] Pulse Oximetry 97 98 Oxygen Delivery Me thod Room Air <Talita Christensen MD - Last Filed: 03/05/22 09:01> Documenting provider has reviewed patient's vital signs: yes <Brendan Curry MD - Last Filed: 03/05/22 06:57> Course Vital Signs Vital signs: Initial Vital Signs Temperature 99.4 F 03/05/22 03:32 Temperature Source Temporal Artery Scan 03/05/22 03:32 Pulse Rate 61 03/05/22 03:32 Respiratory Rate 14 03/05/22 03:32 Blood Pressure 103/77 03/05/22 03:32 Blood Pressure Mean 85 03/05/22 03:32 Blood Pressure Position Supine 03/05/22 03:32 Pulse Oximetry 98 03/05/22 03:32 Oxygen Delivery Method 03/05/22 03:32 Vital Signs Temperature 99.4 F 03/05/22 03:32 Pulse Rate 61 03/05/22 03:32 Respiratory Rate 14 03/05/22 03:32 Blood Pressure 103/77 03/05/22 03:32 Pulse Oximetry 98 03/05/22 03:32 Oxygen Delivery Method 03/05/22 03:32 Temperature 98.5 F 03/05/22 07:16 Pulse Rate 68 03/05/22 07:16 Respiratory Rate 18 03/05/22 07:16 Blood Pressure 102/70 03/05/22 07:16 Pulse Oximetry 98 03/05/22 07:16 Oxygen Delivery Method 03/05/22 07:16 <Brendan Curry MD - Last Filed: 03/05/22 06:57> Initial Vital Signs Temperature 99.4 F 03/05/22 03:32 Temperature Source Temporal Artery Scan 03/05/22 03:32 Pulse Rate 61 03/05/22 03:32 Respiratory Rate 14 03/05/22 03:32 Blood Pressure 103/77 03/05/22 03:32 Blood Pressure Mean 85 03/05/22 03:32 Blood Pressure Position Supine 03/05/22 03:32 Pulse Oximetry 98 03/05/22 03:32 Oxygen Delivery Method 03/05/22 03:32 Vital Signs Temperature 99.4 F 03/05/22 03:32 Pulse Rate 61 03/05/22 03:32 Respiratory Rate 14 03/05/22 03:32 Blood Pressure 103/77 03/05/22 03:32 Pulse Oximetry 98 03/05/22 03:32 Oxygen Delivery Method 03/05/22 03:32 Temperature 98.5 F 03/05/22 07:16 Pulse Rate 68 03/05/22 07:16 Respiratory Rate 18 03/05/22 07:16 Blood Pressure 102/70 03/05/22 07:16 Pulse Oximetry 98 03/05/22 07:16 Oxygen Delivery Method 03/05/22 07:16 <Talita Christensen MD - Last Filed: 03/05/22 09:01> Medical Decision Making MDM Narrative Medical decision making narrative: Further IV fluids have been ordered. Orthostatics overall reassuring. With nursing enrollment representative and assist to do a pelvic exam which revealed no active bleeding. Very small clot in the os. Perineum was stained with blood understandably. Little puzzling presentation. Perhaps did pass retained product but bleeding had stopped prior to this. Seems atypical for menstruation. Since there is no bleeding not sure that ultrasound is absolutely necessary at this time but could engage in watchful waiting. Warrants at least a brief time of observation in the emergency department for to monitor for more bleeding as well as acknowledging head injury. She says ?my head is fine?. I did discuss case with OB on-call. They concur with thoughts as above after initially inquiring whether or not an ultrasound was done. I do present options to this Mrs. Blackman and she would it appears feel more comfortable going ahead with the ultrasound for potentially more information. I think that is very reasonable, and would note that she is going to be observed here regardless. Ultrasound has been done. Apparently she declined a pelvic ultrasound but images were good according to the technologist as she had very full bladder. Notes about a 1 cm color enhancing probable retained product. Pending Radiology over-read. There was no bleeding apparently during the ultrasound and I follow-up with Ms. Blackman and she does not sense any bleeding at this point. Speaking again with delivery truck driver heavy on-call, anticipate them coming to evaluate. Handing off at change of shift. <Brendan Curry MD - Last Filed: 03/05/22 06:57> Further IV fluids have been ordered. Orthostatics overall reassuring. With nursing enrollment representative and assist to do a pelvic exam which revealed no active bleeding. Very small clot in the os. Perineum was stained with blood understandably. Little puzzling presentation. Perhaps did pass retained product but bleeding had stopped prior to this. Seems atypical for menstruation. Since there is no bleeding not sure that ultrasound is absolutely necessary at this time but could engage in watchful waiting. Warrants at least a brief time of observation in the emergency department for to monitor for more bleeding as well as acknowledging head injury. She says ?my head is fine?. I did discuss case with OB on-call. They concur with thoughts as above after initially inquiring whether or not an ultrasound was done. I do present options to this Mrs. Blackman and she would it appears feel more comfortable going ahead with the ultrasound for potentially more information. I think that is very reasonable, and would note that she is going to be observed here regardless. Ultrasound has been done. Apparently she declined a pelvic ultrasound but images were good according to the technologist as she had very full bladder. Notes about a 1 cm color enhancing probable retained product. Pending Radiology over-read. There was no bleeding apparently during the ultrasound and I follow-up with Ms. Blackman and she does not sense any bleeding at this point. Speaking again with delivery truck driver heavy on-call, anticipate them coming to evaluate. Handing off at change of shift. Dr. Christensen: I was told that OBGYN would be seeing patient. Results of imaging data show a uterine polyp rather than retained products of conception. Dr. Leonard, OBGYN business management consultant here who does see patient, reviews ultrasound with patient. She does suggest use of misoprostol 200 mg sublingual as well as ibuprofen 600 mg. Patient is discharged home. She will return as needed for worsening symptoms. <Talita Christensen MD - Last Filed: 03/05/22 09:01> Medical Records Medical records reviewed: Yes I reviewed the patient's medical records <Brendan Curry MD - Last Filed: 03/05/22 06:57> Lab Data Lab results reviewed: Yes I reviewed the patient's lab results <Brendan Curry MD - Last Filed: 03/05/22 06:57> Labs: Lab Results 03/05/22 03/05/22 Range/Units 04:30 04:30 WBC 9.12 (4.50-11.00) K/uL RBC 3.66 L (4.00-5.20) m/uL Hgb 10.9 L (12.0-16.0) gm/dL Hct 33.2 (33.0-51.0) % MCV 91 (80-100) fL MCH 30 (26-34) pg MCHC 33 (32-36) gm/dL RDW Coeff of Nany 11.7 (11.5-15.5) % Plt Count 374 (140-440) K/uL Neut % (Auto) 80.1 H (42.0-72.0) % Lymph % (Auto) 13.8 L (20-44) % Carolina % (Auto) 4.5 (0.0-11.0) % Eos % (Auto) 0.8 (0.0-7.0) % Baso % (Auto) 0.4 (0.0-3.0) % Neut # (Auto) 7.30 H (1.7-7.0) K/uL Lymph # (Auto) 1.30 (0.90-2.90) K/uL Carolina # (Auto) 0.40 (0.00-0.90) K/UL Eos # (Auto) 0.07 (0.00-0.50) K/uL Baso # (Auto) 0.04 (0.00-0.30) K/uL Blood Type O Negative Antibody Screen POSITIVE <Brendan Curry MD - Last Filed: 03/05/22 06:57> Lab Results 03/05/22 03/05/22 Range/Units 04:30 04:30 WBC 9.12 (4.50-11.00) K/uL RBC 3.66 L (4.00-5.20) m/uL Hgb 10.9 L (12.0-16.0) gm/dL Hct 33.2 (33.0-51.0) % MCV 91 (80-100) fL MCH 30 (26-34) pg MCHC 33 (32-36) gm/dL RDW Coeff of Nany 11.7 (11.5-15.5) % Plt Count 374 (140-440) K/uL Neut % (Auto) 80.1 H (42.0-72.0) % Lymph % (Auto) 13.8 L (20-44) % Carolina % (Auto) 4.5 (0.0-11.0) % Eos % (Auto) 0.8 (0.0-7.0) % Baso % (Auto) 0.4 (0.0-3.0) % Neut # (Auto) 7.30 H (1.7-7.0) K/uL Lymph # (Auto) 1.30 (0.90-2.90) K/uL Carolina # (Auto) 0.40 (0.00-0.90) K/UL Eos # (Auto) 0.07 (0.00-0.50) K/uL Baso # (Auto) 0.04 (0.00-0.30) K/uL Blood Type O Negative Antibody Screen POSITIVE <Talita Christensen MD - Last Filed: 03/05/22 09:01> Imaging Data Pelvic ultrasound: Attestation: I have reviewed the pertinent imaging results. <Talita Christensen MD - Last Filed: 03/05/22 09:01> Radiologist's impression: Uterus measures 12.9 x 4.9 x 6.6 centimeters endometrium measures 0.8 millimeters 1.3 centimeter hyperechoic area within the endometrium near the fundus could be related to polyp. Possible vascularity present. There is otherwise no vascularity within the endometrium otherwise seen. There is a small amount of fluid and/or blood products present in the endometrium. Ovaries are unremarkable no free fluid. IMPRESSION: 1. 8 millimeter endometrium. Possible mild fluid and/or blood products within the endometrial cavity. Rounded hyperechoic area in the endometrium near the fundus measuring 1.3 centimeters with slight vascularity this raises possibility of a polyp. There is otherwise no vascularity within the endometrium to suggest retained products of conception <Talita Christensen MD - Last Filed: 03/05/22 09:01> Discharge Plan Discharge Clinical Impression: Closed head injury, Abnormal vaginal bleeding, Uterine polyp <Brendan Curry MD - Last Filed: 03/05/22 06:57> Patient Disposition: Home, Self-Care <Brendan Curry MD - Last Filed: 03/05/22 06:57> Condition: Improved <Brendan Curry MD - Last Filed: 03/05/22 06:57> Additional Instructions: You may feel cramping and increased bleeding. Return per Dr Leonard instructions. Rest and push fluids <Brendan Curry MD - Last Filed: 03/05/22 06:57> Prescriptions: No Action fluoxetine [Prozac] 10 mg capsule 10 mg PO QDAY fluoxetine 20 mg capsule 20 mg PO QDAY Qty: 30 6RF ferrous sulfate [FeroSul] 325 mg (65 mg iron) tablet Label Comments: TAKE 1 TABLET BY MOUTH EVERY DAY WITH A MEAL ibuprofen 600 mg Tablet 600 mg PO Q6H PRNQty: 60 0RF <Brendan Curry MD - Last Filed: 03/05/22 06:57> Follow Up/Referrals: Provider,Not a Local [Referring] - <Brendan Curry MD - Last Filed: 03/05/22 06:57> Stand Alone Forms: [facility] Info Instructions <Brendan Curry MD - Last Filed: 03/05/22 06:57>
[2022-03-05] MEDS: 0.9 % SODIUM CHLORIDE 1000 ml 1,000 ML IV (04:26)
[2022-03-05 04:34] LABS: Basophils Absolute Auto 0.04 K/uL (0.00-0.30); Basophils Percent Auto 0.4 % (0.0-3.0); Eosinophils Absolute Auto 0.07 K/uL (0.00-0.50); Eosinophils Percent Auto 0.8 % (0.0-7.0); Hematocrit 33.2 % (33.0-51.0); Hemoglobin* 10.9 gm/dL (12.0-16.0); Immature Granulocytes Abs Auto 0.04 K/uL (0.00-0.30); Immature Granulocytes Pct Auto 0.4 %; Lymphocytes Percent Auto 13.8 % (20-44); Mean Corpuscular HGB Conc 33 gm/dL (32-36); Mean Corpuscular Hemoglobin 30 pg (26-34); Mean Corpuscular Volume 91 fL (80-100); Monocytes Percent Auto 4.5 % (0.0-11.0); Neutrophils Percent Auto 80.1 % (42.0-72.0); Platelet Count* 374 K/uL (140-440); RDW Coefficient of Variation % 11.7 % (11.5-15.5); Red Blood Count 3.66 m/uL (4.00-5.20); White Blood Count* 9.12 K/uL (4.50-11.00)
[2022-03-05 04:39] LABS: Slide Review Reflex No
--- NOTE | 2022-03-05 05:03 | ED.NURSE ---
MD in room for pelvic exam with customs entry writer at bedside.
--- NOTE | 2022-03-05 05:08 | CRLHL7_ITS ---
For Patients: As a result of the Century Cures Act, medical imaging exams and procedure reports are released immediately into your electronic medical record. You may view this report before your referring provider. If you have questions, please contact your health care provider. CLINICAL HISTORY: Three weeks bleeding TECHNIQUE: Real time, blunt scale images were acquired of the pelvis using a transabdominal and transvaginal approach. FINDINGS: Uterus measures 12.9 x 4.9 x 6.6 centimeters endometrium measures 0.8 millimeters 1.3 centimeter hyperechoic area within the endometrium near the fundus could be related to polyp. Possible vascularity present. There is otherwise no vascularity within the endometrium otherwise seen. There is a small amount of fluid and/or blood products present in the endometrium. Ovaries are unremarkable no free fluid. IMPRESSION: 1. 8 millimeter endometrium. Possible mild fluid and/or blood products within the endometrial cavity. Rounded hyperechoic area in the endometrium near the fundus measuring 1.3 centimeters with slight vascularity this raises possibility of a polyp. There is otherwise no vascularity within the endometrium to suggest retained products of conception Dictated by Miriam Rios MD @ 03/05/2022 7:14:12 AM (Electronically Signed)
[2022-03-05] MEDS: IBUPROFEN 200 MG TABLET 600 MG PO (08:25)
[2022-03-05] MEDS: miSOPROStoL 800 MCG/4 TABLET 200 MCG SUBLINGUAL (08:43)
--- NOTE | 2022-03-05 09:11 | PM.GYNCN1 ---
BIOLOGICAL PHOTOGRAPHER - CN: HPI Data of Consult Time Seen by Provider: 08:30 Date Seen: 03/05/22 Patient: [facility] Patient Consult date: 03/05/22 Requesting Physician: Dr. Curry Primary Care Provider: Maryellen Burgos MD Consult Narrative Reason for consult: vaginal bleeding Narrative: Debra Blackman is a 31 year old female, who presented to the emergency department via ambulance after she awoke from sleep during the night in a pool of blood and then passed out in the bathroom, hitting her head on the tile floor. She is almost three weeks , having experienced a normal spontaneous vaginal delivery of a viable infant on 02/14/2022 at 39 2/7 weeks gestation. The delivery was uncomplicated, EBL was 350 mL. Her Hgb on the day of discharge was 8.9. She tells me that her lochia had stopped completely about 4 days ago, after tapering. The bleeding this morning was bright red in color. She denies fevers, chills, abdominal pain or cramping, or head/neck pain. She is no longer bleeding here in the emergency department. She is breast feeding her infant. 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 Marital status: [] Current tobacco use: no. Current alcohol use: no. Recreational drug use: no. Smoking Status: Never smoker Do you use any of these nicotine containing products: None Second hand tobacco smoke exposure: No How often do you have a drink containing alcohol: never AUDIT-C Alcohol total score: 0 Non-prescribed substance use: denies use Meds Home Medications and Allergies Home Medications Medication Instructions Recorded Confirmed Type fluoxetine 10 mg capsule (Prozac) 10 mg PO QDAY 03/02/22 03/02/22 History ferrous sulfate 325 mg (65 mg mg 03/05/22 History iron) tablet (FeroSul) Allergies Allergy/AdvReac Type Severity Reaction Status Date / Time No Known Drug Allergies Allergy Verified 03/05/22 03:41 BIOLOGICAL PHOTOGRAPHER - Exam Physical Exam: Vital signs: Temp Pulse Resp BP Pulse Ox O2 Del Method 98.5 F 68 18 102/70 98 03/05/22 07:16 03/05/22 07:16 03/05/22 07:16 03/05/22 07:16 03/05/22 07:16 03/05/22 07:16 Constitutional: Constitutional: no acute distress and cooperative BIOLOGICAL PHOTOGRAPHER - Results Labs Labs: Short CBC 03/05/22 Range/Units 04:30 WBC 9.12 (4.50-11.00) K/uL Hgb 10.9 L (12.0-16.0) gm/dL Hct 33.2 (33.0-51.0) % Plt Count 374 (140-440) K/uL Imaging Pelvic ultrasound: Attestation: I have reviewed the pertinent imaging results. My impression: Small 1.3 cm hyperechoic area in the fundus, possibly endometrial polyp. Differential diagnosis includes retained products of conception, but vascularity is minimal. Radiologist's impression: 1. 8 millimeter endometrium. Possible mild fluid and/or blood products within the endometrial cavity. Rounded hyperechoic area in the endometrium near the fundus measuring 1.3 centimeters with slight vascularity this raises possibility of a polyp. There is otherwise no vascularity within the endometrium to suggest retained products of conception Lab Results Labs: Hgb 10.9 Imaging Results Imaging: [place] [address] Diagnostic Imaging Report Patient: Debra Blackman MR#: [id number] : 1990 Acct:[id number] Loc: ED Service Date: 03/05/[address]: Ordering Physician: Brendan Curry M.D. Date of Service: 03/05/22 Procedure(s): US pelvic limited Accession Number(s): [id number] cc: Maryellen Burgos; Brendan Curry M.D.~ For Patients:? As a result of the Cures Act, medical imaging exams and procedure reports are released immediately into your electronic medical record.? You may view this report before your referring provider.? If you have questions, please contact your health care provider. CLINICAL HISTORY: ?Three weeks bleeding TECHNIQUE: Real time, blunt scale images were acquired of the pelvis using a transabdominal and transvaginal approach. FINDINGS: Uterus measures 12.9 x 4.9 x 6.6 centimeters endometrium measures 0.8 millimeters 1.3 centimeter hyperechoic area within the endometrium near the fundus could be related to polyp. Possible vascularity present. There is otherwise no vascularity within the endometrium otherwise seen. There is a small amount of fluid and/or blood products present in the endometrium. Ovaries are unremarkable no free fluid. IMPRESSION: 1. 8 millimeter endometrium. Possible mild fluid and/or blood products within the endometrial cavity. Rounded hyperechoic area in the endometrium near the fundus measuring 1.3 centimeters with slight vascularity this raises possibility of a polyp. There is otherwise no vascularity within the endometrium to suggest retained products of conception Dictated by Miriam Rios MD @ 03/05/2022 7:14:12 AM (Electronically Signed) Assessment and Plan Assessment and plan (1) Abnormal vaginal bleeding: Status: Acute (2) Uterine polyp: Status: Acute Plan 1. I discussed the imaging results with the patient. While there is a small hyperechoic area, 1.3 cm, within the endometrium at the fundus, the appearance is more typical of a polyp or clot than retained products of conception. We could consider D&C, but could also proceed with expectant management as she is not currently bleeding. Her syncopal episode was likely vasovagal, not due to acute blood loss anemia. The patient expressed a desire for expectant management. We could, as a precaution, treat empirically with oral misoprostol and ibuprofen, and she can monitor her bleeding. If she has any signs/symptoms of infection or bleeding such that she is saturating a maxi pad hourly for 2 hours or more, she should seek medical attention. I instructed her as to how to reach me/the OB provider radiation oncology therapist after hours. She expressed acknowledgement of the plan. Follow up as needed in clinic.
== END 2022-03-05 08:50 | disposition home or self-care (01) ==
PROVIDERS: Family Medicine; Emergency Provider Family Medicine; PCP Obstetrics & Gynecology
DX: S09.90XA Unspecified injury of head, initial encounter (principal); N93.9 Abnormal uterine and vaginal bleeding, unspecified; N84.0 Polyp of corpus uteri
CPT/HCPCS: 36415; 76857; 85025; 86850; 86870; 86880; 86900; 86901; 94761; 99284; A9270; J7030

== ENCOUNTER 2022-07-11 09:27 | Outpatient (CLI) | payer OTHER, SELFPAY | END 2022-07-11 09:28 | disposition home or self-care (01) | PROVIDERS: PCP Obstetrics & Gynecology; Visit Provider Obstetrics & Gynecology | DX: N91.2 Amenorrhea, unspecified (principal); Z13.0 Encounter for screening for diseases of the blood and blood-forming organs and certain disorders involving the immune mechanism | CPT/HCPCS: 80053; 82670; 83001; 83516; 84146; 84443 ==

== ENCOUNTER 2022-07-20 09:36 | Outpatient (CLI) | payer OTHER, SELFPAY | END 2022-07-20 09:37 | disposition home or self-care (01) | PROVIDERS: PCP Obstetrics & Gynecology; Referring Provider Obstetrics & Gynecology; Visit Provider Obstetrics & Gynecology | DX: R79.89 Other specified abnormal findings of blood chemistry (principal); R74.01 Elevation of levels of liver transaminase levels | CPT/HCPCS: 84146; 84450; 84460 ==

== ENCOUNTER 2024-03-14 08:15 | Outpatient (CLI) | payer OTHER, SELFPAY | END 2024-03-14 08:16 | disposition home or self-care (01) | LOC: KYNREF 08:17 | PROVIDERS: PCP Family Medicine; Visit Provider Nurse Practitioner Family | DX: R53.83 Other fatigue (principal); Z83.49 Family history of other endocrine, nutritional and metabolic diseases; Z13.29 Encounter for screening for other suspected endocrine disorder | CPT/HCPCS: 84443 ==

== ENCOUNTER 2024-09-24 13:48 | Outpatient (CLI) | payer OTHER, SELFPAY ==
--- NOTE | 2024-09-24 14:00 | CRLHL7_ITS ---
For Patients: As a result of the Century Cures Act, medical imaging exams and procedure reports are released immediately into your electronic medical record. You may view this report before your referring provider. If you have questions, please contact your health care provider. OB ULTRASOUND INDICATION: Dating and viability. TECHNIQUE: Real time grayscale imaging of the fetus was performed. Transabdominal. LMP: Unknown. Previous US: No. CRL: 3.6 cm. 10 w 4 d. KENNEDI: 04/18/2025. FHR: 167 BPM. Gestational sac: 4.3 cm. Appears within normal limits. Yolk sac: 5.1 mm. Appears within normal limits. Right ovary: 3.5 x 1.9 x 2.4 cm. CL. Left ovary: 2.3 x 1.2 x 1.7 cm. IMPRESSION: Single living intrauterine measuring 10 weeks 4 days with sonographic due date 04/18/2025. Brendan Zarate M.D. Diagnostic Radiologist [email or web address] RALF/lucia myers/Dictated by: Brendan Zarate MD @ 09/24/2024 3:59:00 PM (Electronically Signed)
== END 2024-09-24 13:49 | disposition home or self-care (01) ==
LOC: US 13:49
PROVIDERS: PCP Nurse Practitioner Family; Visit Provider Registered Nurse
DX: Z34.91 Encounter for supervision of normal pregnancy, unspecified, first trimester (principal); Z3A.10 10 weeks gestation of pregnancy
CPT/HCPCS: 76801; 83021; 86592; 86703; 86704; 86706; 86762; 86787; 86803; 86850; 87086; 87340; 87491; 87591; 87624; 88142

== ENCOUNTER 2024-09-24 14:47 | Outpatient (CLI) | payer OTHER, SELFPAY ==
[2024-09-24 19:16] LABS: Chlamydia DNA Amplified* NOT DETECTED (No Detected); GC DNA Amplified* NOT DETECTED (No Detected)
[2024-09-27 07:29] LABS: HPV Source Cervix
== END 2024-09-24 14:48 | disposition home or self-care (01) ==
PROVIDERS: PCP Nurse Practitioner Family; Visit Provider Registered Nurse
DX: Z34.91 Encounter for supervision of normal pregnancy, unspecified, first trimester (principal); Z3A.10 10 weeks gestation of pregnancy
CPT/HCPCS: 83020; 83021; 85660; 86592; 86703; 86704; 86706; 86762; 86787; 86803; 86850; 87086; 87340; 87491; 87591; 87624; 87625; 88141; 88142

== ENCOUNTER 2024-12-03 13:52 | Outpatient (CLI) | payer OTHER, SELFPAY ==
--- NOTE | 2024-12-03 14:00 | CRLHL7_ITS ---
For Patients: As a result of the 21st Century Cures Act, medical imaging exams and procedure reports are released immediately into your electronic medical record. You may view this report before your referring provider. If you have questions, please contact your health care provider. OB ULTRASOUND SURVEY KENNEDI by US: 04/18/2025. GA: 20 w, 4 d. INDICATION: Supervision of normal . TECHNIQUE: Real time blunt scale imaging of the fetus was performed. Evaluate anatomy. Transabdominal imaging performed. position: Oblique, Breech, Transverse. Head to maternal right. Cervix: Visualized. Technique: Transabdominal. Length of closed cervix: 4.4 cm. Placenta/cord: Anterior, Fundal. Technique: Transabdominal. Placenta tip to internal OS: 7.6 cm. Umbilical Cord: 3-vessel cord. Placenta insertion: Central. Amniotic Fluid: 5.4 cm SDP (greater than/equal to: 2- less than 8 cm). SURVEY: Observed Structures. Calvarium/Spine: Cerebellum: 2.1 cm, 21 w 1 d. Cisterna Magna: 2.9 mm. Nuchal Fold: 4.1 mm. Lateral Ventricle: 5.9 mm. CSP: Yes. Midline Falx: Yes. Choroid Plexus: Yes. Spine: Yes. Abdomen: Stomach: Yes. Abd Cord Insertion: Yes. Urinary Bladder: Yes. Kidneys: Yes. Diaphragm: Yes. Face: Nose/lips: Yes. Orbital view: Yes. Profile: Yes. Limbs: Upper Extremities: Yes. Lower Extremities: Yes. Hands: Yes. Feet: Yes. Vascular: 4-Chamber Heart: Yes. LVOT: Yes. RVOT: Yes. 3VV: Yes. 3VTV: Yes. BPD: 4.9 cm. 21 w, 0 d, 65 percent. HC: 17.9 cm. 20 w, 3 d, 32 percent. AC: 16.5 cm. 21 w, 4 d, 75 percent. FL: 3.1 cm. 19 w, 4 d, 13 percent. FL/AC ratio: 18.74 percent. HC/AC ratio: 1.09. heart rate: 147 bpm. age by this US: 20 w, 5 d. KENNEDI by this US: 04/17/2025. EFW: 366.60 g. Weight: 13 oz. Percentile by KENNEDI: 48 percent. IMPRESSION: 1. Concordance of clinical and sonographic dating. 2. Normal anatomic survey. Brendan Zarate M.D. Diagnostic Radiologist [email or web address] RALF/lucia myers/Dictated by: Brendan Zarate MD @ 12/03/2024 3:14:00 PM (Electronically Signed)
== END 2024-12-03 13:53 | disposition home or self-care (01) ==
LOC: US 13:52
PROVIDERS: PCP Nurse Practitioner Family; Visit Provider Obstetrics & Gynecology
DX: Z34.92 Encounter for supervision of normal pregnancy, unspecified, second trimester (principal); Z3A.20 20 weeks gestation of pregnancy
CPT/HCPCS: 76805

== ENCOUNTER 2024-12-16 11:37 | Outpatient (CLI) | payer OTHER, SELFPAY ==
[2024-12-16 14:43] LABS: PCR FLU A Negative PCR FLU A (Negative); PCR FLU B Negative PCR FLU B (Negative); PCR RSV Negative PCR RSV (Negative); SARS PCR* Negative SARS-CoV-2 (Negative)
== END 2024-12-16 11:38 | disposition home or self-care (01) ==
PROVIDERS: PCP Nurse Practitioner Family; Visit Provider Nurse Practitioner Family
DX: R05.9 Cough, unspecified (principal)
CPT/HCPCS: 85025; 87631

== ENCOUNTER 2025-01-23 09:18 | Outpatient (CLI) | payer OTHER, SELFPAY | END 2025-01-23 09:19 | disposition home or self-care (01) | LOC: NFLDREF 09:20 | PROVIDERS: PCP Nurse Practitioner Family; Visit Provider Physician Assistant | DX: O26.892 Other specified pregnancy related conditions, second trimester (principal); Z67.91 Unspecified blood type, Rh negative | CPT/HCPCS: 86592; 86850; J2791 ==

== ENCOUNTER 2025-02-17 17:15 | Outpatient (CLI) | payer OTHER, SELFPAY | END 2025-02-17 17:16 | disposition home or self-care (01) | PROVIDERS: PCP Nurse Practitioner Family; Visit Provider Nurse Practitioner Family | DX: R06.02 Shortness of breath (principal) | CPT/HCPCS: 82728; 85025 ==

== ENCOUNTER 2025-03-05 17:52 | Emergency (ER) | payer OTHER, SELFPAY ==
--- OUTSIDE RECORDS SUMMARY | 2025-03-05 17:54 | XMS_ITS ---
Author Organization [facility] Source Produ ction (ClinicalSummary Clone) Address Unknown Care Team Providers Care Computer Analyst Name Role Phone Unavailable Primary Care Physician Unavailab le Results * [UNITY] CARRIER SCREEN Performed by: DashThis Component Value Range Date Sickle Cell Disease/Beta-Thalassemia/Hemoglobino pathies carrier screen NEGATIVE 10/05/2024 02:12 pm UTCAlpha-Thalassemia carrier zfvmihYVNZQZPF88/20/2025 02:12 pm UTCCystic Fibrosis carrier dvrgasJZEHHJZJ64/20/2025 02:12 pm UTCSpinal Muscular Atrophy carrier screenNEGATIVE 2 SMN1 copies, SNP not gakefla1410/05/2024 02:12 pm UTCFor detailed report, see PDFSee PDF10/05/2024 02:12 pm UTC 10/05/2024 02:12 pm UTC Social History Observation Value Start Date End Date
--- OUTSIDE RECORDS SUMMARY | 2025-03-05 17:54 | XMS_ITS ---
Author Organization [facility] Source Produ ction (ClinicalSummary Clone) Address Unknown Care Team Providers Care Taffy Candy Maker Name Role Phone Unavailable Primary Care Physician Unavailab le Results * [UNITY] ANEUPLOIDY NIPT Performed by: Sovi Component Value Range Date Fraction 7.7% 10/07/2024 06:00 am UTCRh(D) NIPTRhD BCIRUXFU56/22/2025 06:00 am CRY27h90.2 MicrodeletionLOW RISK <1 in 10, 06:00 am UTCSex Chromosome AneuploidyNOT CNLHFKNC01/22/2025 06:00 am UTCMonosomy XLOW RISK <1 in 10,000 10/07/2024 06:00 am UTCTrisomy 13LOW RISK <1 in 10, 06:00 am UTC Trisomy 18LOW RISK <1 in 10, 06:00 am UTCTrisomy 21LOW RISK <1 in 10, 06:00 am UTCFetal RecEUUV2310/07/2024 06:00 am UTCPregnancy PvdsrfutuLDYVTPPNZ95/22/2025 06:00 am UTCFor detailed report, see PDFSee PDF 10/07/2024 06:00 am UTC10/07/2024 06:00 am UTC Social History Observation Value Start Date End Date
--- OUTSIDE RECORDS SUMMARY | 2025-03-05 17:54 | XMS_ITS | Clinical Summary ---
Author Organization [facility] er Address [address] [place] [address] Care Team Providers Care Churner Name Role Phone None, Pcp Primary Care Provider Unavailabl e Allergies No known active allergies Medications MedicationSigDispense QuantityRefillsLast FilledStart DateEnd DateStatus sertraline (ZOLOFT) 50 MG tablet 2 tablets (100 mg total)5Active Vit-Fe Fumarate-FA ( MULTIVITAMINS PO) Take by mouthActive amphetamine-dextroamphetamine XR (ADDERALL XR) 5 MG 24 hr capsule Indications:Attention deficit hyperactivity disorder (ADHD), unspecified ADHD typeTake 1 capsule (5 mg total) by mouth 1 (one) time each day in the morning Do not crush or chew. 30 capsule 5Active Active Problems ProblemNoted DateDiagnosed DateHistory of depression, currently odhqttyb15/30/2025Supervision of high risk in first trimester 5Attention deficit hyperactivity disorder (ADHD), combined type 03/31/2015 Overview (08/15/2024): Cost for Adderall XR too high Adderall IR 5 mg BID Controlled Substance Refill Request for adderall 5 mg IR Last refill: 11/10/15 Last clinic visit: 07/03/15 - OV, 11/10/15 - EV Clinic visit frequency required: Q 3 months EV every 6 months OV Next appt: not scheduled Controlled substance agreement on file: No. Documentation in problem list reviewed: Yes Processing: Patient will berry picker in clinic RX monitoring program ([place]) reviewed: ELEVATOR SERVICE TECHNICIAN not reviewed [place]: [email or web address] Generalized anxiety /12/2014 Overview (08/15/2024): Diagnosis updated by automated process. Provider to review and confirm. Papanicolaou smear of cervix with low grade squamous intraepithelial lesion (LGSIL)10/28/2013 Overview (08/15/2024): 10/28/13: LSIL, age 23 per [facility]CCP plan pap cyto only in 1 yr. 12/11/14: ASCUS, age 24. per [facility]CCP plan pap cyto only in 1 yr. 01/06/16: ASCUS pap Plan [place] per guidelines. 06/05/16: [place] Bx WNL. Plan cotest in 1 year per the provider. 07/26/17: ASCUS pap, Neg HR HPV result. Plan: co-test in 1 year. 09/10/18 Patient is lost to pap tracking follow-up. 09/16/18 ASCUS, Neg HPV. Plan: 1 yr co-test or colposcopy. Pt decided to repeat a cotest in 1 year. 01/26/20 Reminder karley Gudino viewed. 02/25/20: Msg left to call clinic RD to schedule cotest. 03/29/20 Lost to follow-up for pap tracking Estimated Date of ZyiutpaoYtnsymmrLyi08/01/2026ased on Ultrasound Family History * Patient is adopted Medical HistoryRelationCommentsDepressionFatherAnxiety disorderMaternal GrandmotherDepressionMaternal GrandmotherDiabetesMotherHypertensionMother Intellectual DisabilitySisterRelationStatusCommentsFatherMaternal Grandmother MotherSister Social History Tobacco UseTypesPacks/DayYears UsedDateSmoking Tobacco: NeverSmokeless Tobacco: Never Tobacco Cessation:Counseling Given: Not Answered Alcohol UseStandard Drinks/WeekCommentsNot Currently0 (1 standard drink = 0.6 oz pure alcohol)Humiliation, Afraid, Rape, and Kick questionnaireAnswerDate RecordedWithin the last year, have you been afraid of your partner or ex-partner?No08/15/2024Within the last year, have you been humiliated or emotionally abused in other ways by your partner or ex-partner?No08/15/2024 Within the last year, have you been kicked, hit, slapped, or otherwise physically hurt by your partner or ex-partner?08/15/2024Within the last year, have you been raped or forced to have any kind of sexual activity by your part ner or ex-partner?No08/15/2024Social Connection and Isolation PanelAnswerDate RecordedFrequency of Communication with Friends and FamilyNot on file08/15/2024 Frequency of Social Gatherings with Friends and FamilyNot on 08/15/2024 Attends Cheondoism ServicesNot on 08/15/2024tive Member of Clubs or OrganizationsNot on 08/15/2024ttends Club or Organization MeetingsNot on 08/15/2024re you , , , , never , or living with a partner?Podqfyn8108/15/2024UDIT-CAnswerDate RecordedQ1: How often do you have a drink containing alcohol?Monthly or less08/15/2024Q2: How many drinks containing alcohol do you have on a typical day when you are drinking?1 or Q3: How often do you have six or more drinks on one occasion?Never 08/15/2024Overall Financial Resource Strain (CARDIA)AnswerDate RecordedHow hard is it for you to pay for the very basics like food, housing, medical care, and heating?Not hard at all08/15/2024PHQ-2AnswerDate RecordedPHQ-9 Total Score0 08/15/2024[facility] [place] [facility] - Occupational Stress QuestionnaireAnswerDate RecordedDo you feel stress - tense, restless, nervous, or anxious, or unable to sleep at night because yourmind is troubled all the time - these days?Not at all08/15/2024Exercise Vital SignAnswerDate RecordedOn average, how many days per week do you engage in moderate to strenuous exercise (like a brisk walk)?5 days08/15/2024On average, how many minutes do you engage in exercise at this level?30 min08/15/2024Hunger Vital SignAnswerDate Recorded Within the past 12 months, you worried that your food would run out before you got the money to buymore.Never true08/15/2024Within the past 12 months, the food you bought just didn't last and you didn't have money to get more.Never true 08/15/2024PRAPARE - TransportationAnswerDate RecordedIn the past 12 months, has lack of transportation kept you from medical appointments or from getting medications?No08/15/2024In the past 12 months, has lack of transportation kept you from meetings, work, or from getting things needed for daily living?No 08/15/2024Housing Stability Vital SignAnswerDate RecordedIn the last 12 months, was there a time when you were not able to pay the mortgage or rent on time?No 08/15/2024In the past 12 months, how many times have you moved where you were living?t any time in the past 12 months, were you homeless or living in a long term (including now)?No08/15/2024EducationAnswerDate RecordedWhat is the highest level of school you have completed or the highest degree you have received?Bachelor's degree (e.g., BA, AB, BS)08/15/2024Estimated Date of RnchkvhsAdwpvcvaGwx41/01/2026ased on UltrasoundSex and Gender InformationValue Date RecordedSex Assigned at BirthNot on fileLegal CmhMbzrpl82/29/2025 10:42 AM CDTGender IdentityNot on fileSexual OrientationNot on fileOccupationIndustryJob Start DateJob End DateSocial WorkerNot on fileNot on fileNot on file Last Filed Vital Signs Vital SignReadingTime TakenCommentsBlood Lboekfpo140/7406 1:50 PM CDT Homqf692208/26/2024 1:50 PM CDTTemperature--Respiratory Vctd5631 1:50 PM CDTOxygen Saturation--Inhaled Oxygen Concentration--Izkmrg52.9 kg (134 lb 4.8 oz)08/26/2024 1:50 PM JMGQdecqp337.9 cm (4' 11)08/26/2024 1:50 PM CDTBody Mass Index27.13008/26/2024 1:50 PM CDT Plan of Treatment Health MaintenanceDue DateLast DoneCommentsPap Smear4104/09/2020 DTaP,Tdap,and Td Vaccines (4 - Td or Tdap)5104/06/2024, 12/06/2021, 10/28/2013HPV XcgnpppiBthcifjjz94/20/2016, 12/11/2014, 10/28/2013COVID-19 KbklndoAofcrshew45/07/2025, 12/13/2023, 03/30/2021, Additional history exists Influenza RwfsynlHavxodwuu93/07/2025, 12/13/2023, 02/07/2021, Additional history existsPneumococcal Vaccine: Pediatrics (0 to 5 Years) and At-Risk Patients (6 to 49 Years)Aged OutNo longer eligible based on patient's age to complete this topic Insurance RACHEL Lloyd [id number] Care Teams Team MemberRelationshipSpecialtyStart DateEnd Date None, Pcp [address] [place] [phone] PCP - GeneralGeneral Practice08/25/24
--- OUTSIDE RECORDS SUMMARY | 2025-03-05 17:54 | XMS_ITS | Clinical Summary ---
Author Organization [facility] Address [address] [place] [id number] Care Team Providers Care Panel Instrument Repairer Name Role Phone Rebecca Weaver APRN [facility] Primary Care Provider + Adi Holguin PhD LP Unavailable [phone] Allergies No known active allergies Medications MedicationSigDispense QuantityRefillsLast FilledStart DateEnd DateStatus levonorgestrel (MIRENA) 20 MCG/24HR IUD 1 each by Intrauterine route onceActive citalopram (CELEXA) 20 MG tablet Indications:Generalized anxiety disorderTake 1 tablet (20 mg) by mouth daily 90 tablet Active amphetamine-dextroamphetamine (ADDERALL XR) 20 MG 24 hr capsule Indications:Attention deficit hyperactivity disorder (ADHD), combined typeTake 1 capsule (20 mg) by mouth daily 30 capsule 04/16/2020ctive amphetamine-dextroamphetamine (ADDERALL XR) 20 MG 24 hr capsule Indications:Attention deficit hyperactivity disorder (ADHD), combined typeTake 1 capsule (20 mg) by mouth daily 30 capsule 04/16/2020ctive amphetamine-dextroamphetamine (ADDERALL) 5 MG tablet Indications:Attention deficit hyperactivity disorder (ADHD), combined typeTake 1 tablet (5 mg) by mouth daily 30 tablet 04/16/2020ctive amphetamine-dextroamphetamine (ADDERALL) 5 MG tablet Indications:Attention deficit hyperactivity disorder (ADHD), combined typeTake 1 tablet (5 mg) by mouth daily 30 tablet 01/29/2021Active Active Problems ProblemNoted DateDiagnosed DateAttention deficit hyperactivity disorder (ADHD), combined type03/31/2015 Overview (11/10/2015): Cost for Adderall XR too high Adderall IR 5 mg BID Controlled Substance Refill Request for adderall 5 mg IR Last refill: 11/10/15 Last clinic visit: 07/03/15 - OV, 11/10/15 - EV Clinic visit frequency required: Q 3 months EV every 6 months OV Next appt: not scheduled Controlled substance agreement on file: No. 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 Provider to review and confirm. Papanicolaou smear of cervix with low grade squamous intraepithelial lesion (LGSIL)10/28/2013 Overview (03/29/2020): 10/28/13: LSIL, age 23 per [facility] plan pap cyto only in 1 yr. 12/11/14: ASCUS, age 24. per [facility] plan pap cyto only in 1 yr. 01/06/16: ASCUS pap Plan [place] per guidelines. 06/05/16: [place] Bx WNL. Plan cotest in 1 year per the provider. 07/26/17: ASCUS pap, Neg HR HPV result. Plan: co-test in 1 year. 09/10/18 Patient is lost to pap tracking follow-up. 09/16/18 ASCUS, Neg HPV. Plan: 1 yr co-test or colposcopy. Pt decided to repeat a cotest in 1 year. 01/26/20 Reminder Terese, pt viewed. 02/25/20: Msg left to call clinic RD to schedule cotest. 03/29/20 Lost to follow-up for pap tracking Immunizations ImmunizationAdministration DatesNext JuhVDC48,12/11/2014,10/28/2013 Influenza Vaccine >6 months,quad, PF05/08/2019,01/23/2018,01/06/2016,03/31/2015, 02/04/2014TDAP Vaccine (Adacel)10/28/2013 Social History Tobacco UseTypesPacks/DayYears UsedDateSmoking Tobacco: NeverSmokeless Tobacco: NeverAlcohol UseStandard Drinks/WeekCommentsNo0 (1 standard drink = 0.6 oz pure alcohol)PHQ-2AnswerDate RecordedPHQ-2 Nlaiu228Adolescent EducationAnswer Date RecordedGetting School Help NeededNot on file3CommentsNo Sex and Gender InformationValueDate RecordedSex Assigned at BirthFemale 05/06/2018 12:33 PM CSTLegal BrwQzhczi60/07/2014 9:38 AM CDTGender Identity Lxbfld1305/06/2018 12:33 PM CSTSexual FjtmieywrkeIreeoujo03/18/2019 12:33 PM COORDINATE MEASURING MACHINE PROGRAMMER Last Filed Vital Signs Vital SignReadingTime TakenCommentsBlood Arzdpacw495/72005/08/2019 3:26 PM COORDINATE MEASURING MACHINE PROGRAMMER Qfzkx676905/08/2019 3:26 PM JQTYpudaqtvkxp53 ??C (98.6 ??F)05/08/2019 3:26 PM COORDINATE MEASURING MACHINE PROGRAMMER Respiratory Cchu753605/08/2019 3:26 PM CSTOxygen Mwqvrbzriq15%05/08/2019 3:26 PM CSTInhaled Oxygen Concentration--Qkvcow48 kg (119 lb 1 oz)05/08/2019 3:26 PM COORDINATE MEASURING MACHINE PROGRAMMER Cibayi238.4 cm (4' 10.03)05/08/2019 3:26 PM CSTBody Mass Index24.8605/08/2019 3:26 PM COORDINATE MEASURING MACHINE PROGRAMMER Plan of Treatment Not on file Insurance * Guarantor: Nehemiah Mishra Debra AAccount TypeRelation to PatientDate of BirthPhoneBilling EnmcnqfUhxizptinmAudy1990 [address] [place], [place] [id number] Care Teams Team MemberRelationshipSpecialtyStart DateEnd Date Rebecca Weaver, NURSE GENERAL DUTY NURSE RESEARCH [address] [facility] [address] [place] [address] PCP - GeneralNurse Practitioner - Fzizud44/16/15 Adi Holguin, PhD LP [address] [place] [address] [place] [address] Alvxkmttvj78/30/15
[2025-03-05 18:02] VITALS: BP 116/66; PULSE 114; RESP 26; TEMP 36.4; O2SAT 96; BMI 29.7
--- NOTE | 2025-03-05 18:19 | CRLHL7_ITS ---
For Patients: As a result of the Cures Act, medical imaging exams and procedure reports are released immediately into your electronic medical record. You may view this report before your referring provider. If you have questions, please contact your health care provider. INDICATION: : productive cough, SOB COMPARISON: Chest radiograph on February 04, 2025 TECHNIQUE: view(s) of the chest FINDINGS: The cardiomediastinal silhouette and pulmonary vasculature are unremarkable. There is no focal airspace consolidation, pleural effusion, or pneumothorax. No displaced fractures. IMPRESSION: No acute cardiopulmonary process. Dictated by Amanuel Obando MD @ 03/05/2025 7:05:16 PM (Electronically Signed)
[2025-03-05] MEDS: METHYLPREDNISOLONE SOD SUCC 62.5 MG/ML (125) 125 MG IVP (18:52)
[2025-03-05] MEDS: IPRAT-ALBUT 0.5-2.5 MG/3 ML NEB 1 NEB IH ×2 (18:52→20:17)
[2025-03-05 18:54] LABS: Hematocrit* 33.6 % (33.0-51.0); Hemoglobin* 11.2 gm/dL (12.0-16.0); Immature Granulocytes Abs Auto 0.10 K/uL (0.00-0.30); Immature Granulocytes Pct Auto 1.1 %; Lymphocytes Absolute Auto 1.70 K/uL (0.90-2.90); Mean Corpuscular HGB Conc 33 gm/dL (32-36); Mean Corpuscular Hemoglobin 30 pg (26-34); Mean Corpuscular Volume 91 fL (80-100); RDW Coefficient of Variation % 11.9 % (11.5-15.5); Red Blood Count* 3.70 m/uL (4.00-5.20); White Blood Count* 12.06 K/uL (4.50-11.00)
[2025-03-05 18:56] LABS: Slide Review Reflex No
--- NOTE | 2025-03-05 18:58 | ED_ITS ---
HPI - General Adult General Chief complaint: Shortness of Breath/Dyspnea Stated complaint: trouble breathing, 34 wks preg Time Seen by Provider: 03/05/25 17:55 History of Present Illness HPI narrative: Pleasant 34-year-old female who is , currently 34 weeks . She presents to the ER today accompanied by her for evaluation of shortness of breath, productive cough, chest tightness. She is generally healthy. She does not have any history of heart disease, asthma, or other lung disease. Beginning a couple of months ago in late November she has been ill with cough and respiratory symptoms. It sounds like initially they presume that her illness was probably viral but it just was not getting better. She has been working with her OB team. She had an x-ray a few weeks ago that was clear and she was put on a 5 day course of Zithromax. While she was on the Zithromax she felt perhaps temporarily partially better. She has also been told that she is wheezy so she was given albuterol inhaler. She has been using that p.r.n.. She does not think it helps very much, but her feels like it probably does help a little bit with her cough, only temporarily. She had finished her Zithromax about a week ago and has been having worsening cough and chest ti ghtness since then. Cough is turn from being nonproductive to productive of some clear/greenish phlegm. She has had a couple of nose bleeds lately which he thinks are probably due to dry weather and now vascular congestion from her 3rd trimester . No large volume epistaxis. As a result of the nose bleeds, sometimes her phlegm is slightly tinged with blood. She has not had a fever. No earache. No other does deny sinus congestion. No sore throat. No abdominal pain. No pelvic cramping or uterine contractions. No vaginal bleeding or fluid leakage. She is feeling her baby kicking (it is going to be a boy ). She has an appointment with her OB team tomorrow but was noting increasing shortness of breath and worsening cough. She called the phone triage line was told to come to the ER She is not having any swelling in her legs. No recent travel or immobilization. No history of DVT or PE. No trouble with preeclampsia or hypertension during this . She is not diabetic.. Related Data Home Medications ?Medication ?Instructions ?Recorded ?Confirmed sertraline 100 mg tablet (Zoloft) 100 mg PO QDAY 01/2302/20/25 docosahexaenoic acid 200 mg 200 mg PO DAILY 02/17/25 1 04/23/24 capsule ( DHA) Previous Rx's ?Medication ?Instructions ?Recorded dextroamphetamine-amphetamine ER 10 mg PO QAM #30 caps 08/07/24 10 mg 24hr capsule,extend release (Adderall XR) Held on 09/24/24. Instructions: albuterol sulfate 90 mcg/actuation 2 puff inhalation Q 4-6H PRN 12/16/24 aerosol inhaler shortness of breath or wheez ing #8.5 grams omeprazole 40 mg capsule,delayed 40 mg PO QDAY #90 cap s 02/20/25 release albuterol sulfate 2.5 mg/3 mL 2.5 mg (3 mL) inhalation Q4H PRN 03/05/25 (0.083 %) solution for nebulization #90 mL nebulizers #1 ea 03/05/25 prednisone 20 mg tablet 40 mg (2 x 20 mg) PO DAILY # 10 tabs 03/05/25 Allergies Allergy/AdvReac Type Severity Reaction Status Date / Time No Known Drug Allergies Allergy Verified 02/20/25 09:[address] [facility] Medical History (Updated 03/05/25 @ 20:56 by Noble Beebe MD) GERD (gastroesophageal reflux disease) ?K21.9 - Gastro-esophageal reflux disease without esophagitis (ICD-10) Prolactin increased ?R79.89 - Other specified abnormal findings of blood chemistry (ICD-10) Normal spontaneous vaginal delivery ?O80 - Encounter for full-term uncomplicated delivery (ICD-10) History of abnormal cervical Papanicolaou smear ?Z87.42 - Personal history of other diseases of the female genital tract (ICD-10) Surgical History Hx of cholecystectomy (~2008) ?Z90.49 - Acquired absence of other specified parts of digestive tract (ICD- 10) Family History (Updated 03/28/24 @ 05:39 by Yoon Kilgore, ELECTRICAL ENGINEERING DRAFTSPERSON, SALES FLOOR MANAGER) Mother Diabetes Thyroid disease Father Suicide Other Anxiety and depression Social History (Updated 03/14/24 @ 07:59 by Ingrid Courtney ~ [facility], [facility]) 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: , 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[employer], 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 Lifetime nonsmoker 1-2 alcoholic drinks a week No drug use Exercise 3 times a week walking What is your current living situation?: I presently have a place to live Problems where you live: no known problems In the past 12 months, utilities in danger of being shut off: no In past 12 months, lack of transportation kept you from medical appts, meetings, work, or getting things needed for daily living: no In the past 12 mos, have been you worried that your food would run out before you had money to buy more?: never true In the past 12 mos, the food you bought just didn't last and you didn't have money to buy more?: never true Smoking Status: Never smoker Do you use any of these nicotine containing products: None Second hand tobacco smoke exposure: No How often do you have a drink containing alcohol: never AUDIT-C Alcohol total score: 0 Non-prescribed substance use: denies use How often does anyone, including family, friends and others, physically hurt you : never How often does anyone, including family, friends and others, insult or talk down to you: never How often does anyone, including family, friends and others, threaten you with harm: never How often does anyone, including family, friends and others, scream or curse at you: never Exam Narrative: Exam Narrative: Constitutional: Appears well-developed and well-nourished. Alert. Conversant. Non toxic. HENT: Head: Atraumatic. Nose: Nose normal. No recent bleeding. No active epistaxis. Tympanic membranes normal. Mouth/Throat: Oral mucosa is clear and moist. no trismus. Pharynx normal. Tonsils symmetric. No tonsillar enlargement, erythema, or exudate. Eyes: Conjunctivae normal. EOM normal. Pupils equal, round, and reactive to light. No scleral icterus. Neck: Normal range of motion. Neck supple. No tracheal deviation present. No J VD Cardiovascular: Normal rate, regular rhythm. No gallop. No friction rub. No murmur heard. Symmetric radial artery pulses Pulmonary/Chest: Effort normal. No stridor. No respiratory distress. Bilateral fairly diffuse wheezes. Difficult for her to breathe and now because she is coughing a lot. No rales. No rhonchi . No tenderness. Abdominal: Soft. Bowel sounds normal. No distension. Palpable nontender uterus consistent with dates. No tenderness. No rebound. No guarding. Musculoskeletal: RUE: Normal range of motion. No tenderness. No deformity LUE: Normal range of motion. No tenderness. No deformity RLE: Normal range of motion. No edema. No tenderness. No deformity LLE: Normal range of motion. No edema. No tenderness. No deformity Neurological: Alert and oriented to person, place, and time. Normal strength. CN II-VII intact. No sensory deficit. GCS eye subscore is 4. GCS verbal subscore is 5. GCS motor subscore is 6. Normal coordination Skin: Skin is warm and dry. No rash noted. No pallor. Normal capillary refill. Psychiatric: Normal mood. Normal affect. Const: Vital Signs, click to edit/add: Vital Signs - 24 hr 03/05/25 18:02 03/05/25 20:03 03/05/25 20:03 Temperature 97.6 F Pulse Rate Pulse Rate [Pulse Oximeter] 114 H Respiratory Rate 26 H Blood Pressure Blood Pressure [Ri ght Upper Arm] 116/66 Pulse Oximetry 96 94 95 03/05/25 20:03 03/05/25 20:03 03/05/25 20:03 Temperature Pulse Rate 83 Pulse Rate [Pulse Oximeter] Respiratory Rate 20 Blood Pressure 105/65 Blood Pressure [Ri ght Upper Arm] Pulse Oximetry Course Course ED Course: Recheck-after 1st neb feeling somewhat better but lung still wheezy. Will order 2nd OB nurses are at the bedside doing a monitor and nonstress test. There was a little bit of tachycardia that occurred while she was getting her 2nd albuterol nebulizer. Since then feel tracing has been reassuring. Recheck-after 2nd nebs feeling much better. Minimal ongoing wheezing. Fairly any more coughing. She notes how much better she is feeling. Vital Signs Vital signs: Initial Vital Signs Respiratory Effort Normal 03/05/25 17:59 Respiratory Depth Normal 03/05/25 17:59 Vital Signs Temperature 97.6 F 03/05/25 18:02 Pulse Rate 114 H 03/05/25 18:02 Respiratory Rate 26 H 03/05/25 18:02 Blood Pressure 116/66 03/05/25 18:02 Pulse Oximetry 96 03/05/25 18:02 Temperature 97.6 F 03/05/25 18:02 Pulse Rate 83 03/05/25 20:03 Respiratory Rate 20 03/05/25 20:03 Blood Pressure 105/65 03/05/25 20:03 Pulse Oximetry 95 03/05/25 20:03 Medications Administered Medications: Discontinued Medications Generic Name Dose Route Start Last Admin Trade Name Haim PRN Reason Stop Dose Admin Albuterol/Ipratropium 1 neb 03/05/25 18:19 03/05/25 18:52 Iprat-Albut 0.5-2.5 Mg/3 Ml Neb IH 03/05/25 18:20 1 neb ONCE ONE Administration Albuterol/Ipratropium 1 neb 03/05/25 20:00 03/05/25 20:17 Iprat-Albut 0.5-2.5 Mg/3 Ml Neb IH 03/05/25 20:01 1 neb ONCE ONE Administration Methylprednisolone Sodium Succinate 125 mg 03/05/25 18:19 03/05/25 18:52 Methylprednisolone Sod Succ 62.5 Mg/Ml (125) IVP 03/05/25 18:20 125 mg ONCE ONE Administration Medical Decision Making MDM Narrative Medical decision making narrative: This patient presents for evaluation of shortness of breath and coughing. She does not have any history of asthma but has been dealing with a cough now for the past couple of months and had been treated by her OB doctor and given an albuterol inhaler. Here in my ER she is definitely wheezing. She responded nicely to nebulizer treatment for bronchospasm. Although she was wheezy and coughing a lot she was never hypoxic or showing signs of respiratory distress. She is not requiring admission for oxygen supplementation and does not require BiPAP or intubation.. Signs and symptoms are consistent with asthma exacerbation, or possibly reactive airways disease triggered by viral infection. A broad differential was considered including asthma, pneumonia, COVID, influenza, bronchitis, pneumothorax, viral induced wheezing, allergic phenomena, peripartum cardiomyopathy, CHF among others. There are no signs at this point of any serious etiologies including those mentioned above. Laboratory workup, viral swab, EKG, chest x-ray are reassuring. She is not having any peripheral edema to raise concern for preeclampsia, DVT. While the patient was here she did have monitoring with a nonstress test for her baby and this was reviewed by OB. They find no signs of active labor or other signs of distress. They clear the patient for outpatient management. She has an appointment tomorrow to recheck. The patient feels and sounds improved after interventions here in ED. No indication for hospitalization at this time including no hypoxia, no marked increase in respiratory rate, and there are minimal to no retractions. Supportive outpatient management is indicated, medications for discharge noted above. Close followup with her OB team. She already has an appointment tomorrow morning and I encouraged her to keep that for recheck tomorrow.. Return if increased wheezing, progressive shortness of breath, develops fever greater than 102. Questions answered and patient comfortable with plan. Lab Data Labs: Lab Results 03/05/25 03/05/25 03/05/25 Range/Units 18:19 18:41 18:50 WBC 12.06 H (4.50-11.00) K/uL RBC 3.70 L (4.00-5.20) m/uL Hgb 11.2 L (12.0-16.0) gm/dL Hct 33.6 (33.0-51.0) % MCV 91 (80-100) fL MCH 30 (26-34) pg MCHC 33 (32-36) gm/dL RDW Coeff of Nany 11.9 (11.5-15.5) % Plt Count 198 (140-440) K/uL Neut % (Auto) 74.1 H (42.0-72.0) % Lymph % (Auto) 14.0 L (20-44) % Woodford % (Auto) 7.0 (0.0-11.0) % Eos % (Auto) 3.6 (0.0-7.0) % Baso % (Auto) 0.2 (0.0-3.0) % Neut # (Auto) 8.90 H (1.7-7.0) K/uL Lymph # (Auto) 1.70 (0.90-2.90) K/uL Woodford # (Auto) 0.80 (0.00-0.90) K/UL Eos # (Auto) 0.40 (0.00-0.50) K/uL Baso # (Auto) 0.00 (0.00-0.30) K/uL Abs Immat Gran (auto) 0.10 (0.00-0.30) K/uL Imm/Tot Granulo (auto) 1.1 % Sodium 132 L (135-149) mmol/L Potassium 3.7 (3.6-5.1) mmol/L Chloride 105 (96-114) mmol/L Carbon Dioxide 19 L (20-32) mmol/L Anion Gap 8 (7-15) mEq/L BUN 6 (5-24) mg/dL Creatinine 0.6 (0.5-1.5) mg/dL Estimated Creat Clear 140.38 Estimated GFR 121 ml/min Glucose 100 (60-115) mg/dL Calcium 8.7 (8.4-10.6) mg/dL POC Troponin I High Sensi < 2.9 L (2.9-13.0) pg/mL NT-Pro-B Natriuret Pep < 20 (See Note) pg/mL SARS-CoV-2 (PCR) Negative SARS-CoV-2 (Negative) Influenza Type A (PCR) Negative PCR FLU A (Negative) Influenza Type B (PCR) Negative PCR FLU B (Negative) RSV (PCR) Negative PCR RSV (Negative) Imaging Data Chest x-ray: Attestation: I have reviewed the pertinent imaging results. My impression: clear lungs Radiologist's impression: IMPRESSION: No acute cardiopulmonary process. ECG Data Attestation: I personally reviewed and interpreted this ECG as follows: Interpretation: Normal sinus rhythm Rate 92 MI interval 138 Normal QRS axis no ST segment elevation or depression QT 346, QTC 427 Discharge Plan Discharge Clinical Impression: Reactive airway disease with wheezing Patient Disposition: Home, Self-Care Condition: Stable Instructions: Asthma (DC), How to Use a Nebulizer (DC) Additional Instructions: As we discussed, please come back to the ER right away if you have worsening trouble breathing, chest pain high fever, bloody cough, weakness, concerns about your , or any other problems. I think that your cough and chest tightness or cause because your wheezing and the bronchial tubes in your lungs are inflamed and irritable. To treat this you can use your inhaler (2 puffs every 2-4 hours) or nebulizer 1 treatment every 2- 4 hours. Also start on prednisone once daily (in the morning) each day for the next 5 days. Please follow-up with your OB doctor tomorrow as you already have scheduled. Prescriptions: New albuterol sulfate 2.5 mg /3 mL (0.083 %) solution for nebulization 2.5 mg inhalation Q4H PRNQty: 90 0RF prednisone 20 mg tablet 40 mg PO DAILY Qty: 10 0RF (DME) nebulizers Misc See Rx Instructions .Route Qty: 1 0RF Rx Instructions: As directed No Action albuterol sulfate 90 mcg/actuation HFA aerosol inhaler 2 puff inhalation Q4-6H PRN (Reason: shortness of breath or wheezing) Qty: 8.5 1RF sertraline [Zoloft] 100 mg tablet 100 mg PO QDAY DHA 200 mg capsule 200 mg PO DAILY omeprazole 40 mg capsule,delayed release(DR/EC) 40 mg PO QDAY Qty: 90 1RF dextroamphetamine-amphetamine [Adderall XR] 10 mg capsule,extended release 24hr 10 mg PO QAM Qty: 30 0RF Follow Up/Referrals: Yoon Kilgore, ELECTRICAL ENGINEERING DRAFTSPERSON, SALES FLOOR MANAGER [Primary Care Provider, Family Practice] Stand Alone Forms: Work/School Release, [facility] Info Instructions
[2025-03-05 19:15] LABS: Chloride* 105 mmol/L (96-114)
[2025-03-05 19:16] LABS: Potassium* 3.7 mmol/L (3.6-5.1); Sodium* 132 mmol/L (135-149)
[2025-03-05 19:18] LABS: Blood Urea Nitrogen* 6 mg/dL (5-24); Creatinine* 0.6 mg/dL (0.5-1.5); Est. Creatinine Clearance* 140.38; Estimated Glomerular Filt Rate 121 ml/min
[2025-03-05 19:19] LABS: Anion Gap 8 mEq/L (7-15); Calcium* 8.7 mg/dL (8.4-10.6); Carbon Dioxide* 19 mmol/L (20-32); Glucose* 100 mg/dL (60-115)
[2025-03-05 19:30] LABS: PCR FLU A Negative PCR FLU A (Negative); PCR FLU B Negative PCR FLU B (Negative); PCR RSV Negative PCR RSV (Negative); SARS PCR* Negative SARS-CoV-2 (Negative)
[2025-03-05 19:44] LABS: NT Pro B Type NatriureticPept* < 20 pg/mL (See Note)
[2025-03-05 20:03] VITALS: BP 105/65; PULSE 83; PULSE 85; PULSE 95; RESP 20; O2SAT 94; O2SAT 95
--- NOTE | 2025-03-05 21:35 | PC.OBNST ---
NST Note NST Note Start: 03/05/25 21:10 Freq: ONCE Status: Active Protocol: Document 03/05/25 21:34 LLB (Rec: 03/05/25 21:35 LLB No Response) NST Note 3 Para (# of births) 2 EDC 04/18/25 Gestational Age In 33 Weeks & 5 Days Weeks & Days Patient Presented Other with Complaint(s) of Other Complaints SOB and Cough since November per patient. Reactive Yes Appropriate for Yes Gestational Age RN DAWSON Bliss Date 03/05/25 Reactive Yes Appropriate for Yes Gestational Age DAWSON Solis MD Date 03/05/25 OB NST charge Yes Complete NST Note Yes via Write Note The provider's electronic signature indicates the NST is reactive/appropriate for gestational age. *Note to provider: If an addendum is required, open the patient's chart and click on the note under the Nurse/Allied Health tab.
== END 2025-03-05 21:49 | disposition home or self-care (01) ==
PROVIDERS: Emergency Provider Emergency Medicine; PCP Nurse Practitioner Family
DX: O99.513 Diseases of the respiratory system complicating pregnancy, third trimester (principal); J45.909 Unspecified asthma, uncomplicated; Z3A.34 34 weeks gestation of pregnancy
CPT/HCPCS: 36415; 59025; 71046; 80048; 83880; 84484; 85025; 87631; 93005; 94640; 96374; 99284; 99285; J2919